=== PATIENT | male | born 1950 | race Two or more races ===

== ENCOUNTER → 2020-08-02 11:10 | Outpatient (BNVA) | payer MEDICARE, SELFPAY | PROVIDERS: PCP Internal Medicine; Visit Provider Urology | CPT/HCPCS: Q3014 ==

== ENCOUNTER → 2021-02-05 09:45 | Outpatient (BNVA) | payer MEDICARE, SELFPAY | PROVIDERS: PCP Internal Medicine; Visit Provider Urology | DX: N52.9 Male erectile dysfunction, unspecified (principal); C61 Malignant neoplasm of prostate | CPT/HCPCS: Q3014 ==

== ENCOUNTER → 2021-08-02 11:10 | Outpatient (BNVA) | payer OTHER, SELFPAY | PROVIDERS: PCP Internal Medicine; Visit Provider Urology | DX: Z13.89 Encounter for screening for other disorder (principal) ==

== ENCOUNTER 2023-09-02 13:41 | Outpatient (AMB) | payer MEDICARE, SELFPAY ==
--- NOTE | 2023-09-02 13:46 | A.OFFVIS_ITS ---
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 Accompanied by: Self / Same As Patient Allergies meperidine [Demerol] Allergy (Unknown, Verified 09/02/23 14:00) Unknown Medication List - Last Reconciled 09/02/23 by Ten Valente MD alcohol swabs (DropSafe Alcohol Prep Pads) pad topical allopurinol 300 mg PO DAILY amlodipine 5 mg PO DAILY amlodipine 10 mg PO DAILY atorvastatin 40 mg PO DAILY blood sugar diagnostic (Accu-Chek Jenna Plus test strips) As directed carvedilol 12.5 mg PO BID empagliflozin (Jardiance) mg PO glimepiride 4 mg PO DAILY lancets As directed metformin 500 mg PO BID sildenafil 100 mg PO DAILY PRN 30 days triamcinolone acetonide 0.5% 1 appl topical BID HPI HPI Comments History of Present Illness Details Ajay is a very pleasant male. He is a patient of Dr Noonan. He is seen for the following urologic conditions - prostate cancer with delayed failure a nd salvage radiation - erectile dysfunction - phimosis No recent PSA Has not been seen since January 2022 Here to reestablish care Has phimosis - has been on Jardiance for diabetes control and this may be causing the issue Recommend trial of topical therapy Repeat PSA Prostate cancer: Diagnosed April 2007, Luisa 3 + 3 initial therapy radical prostatectomy, EXBRT 2016 Prostate cancer was diagnosed 04/2007. PSA 5.9. The [place] grade is 3+3. TNM Classification of Malignant Tumours (TNM) pT1c- N0. The D'Winsome (NCCN) risk category is Low Risk (PSA< 10, Gl < 7, T1c). Initial therapy included Primary treatment, radical prostatectomy 06/25, VIU 05/28 Additional treatment - rising PSA 04/02 , External Beam Radiation, [facility] 6700Gy, 37 fractions Recent labs included a PSA (prostate-specific antigen) 10/30 0.2, 07/31 0.2, 10/31 0.4, 01/31 0.4 12/01 < 0.1, 06/04 < 0.1, 12/02 < 0.1, 07/06 < 0.1, 12/03 < 0.1, 07/07 < 0.1 - 08/05 <0.1, 02/05 <0.1, 08/06 <0.1, 02/06 <0.1, 08/07 <0.1 Associated conditions erectile dysfunction Yes Therapeutic plan: Continue with surveillance - every 6 months since failure to control Erectile dysfunction Secondary to treatment for prostate cancer Good response to sildenafil 100 mg 2020 [facility] Medical History (Updated 09/02/23 @ 14:25 by Ten Valente MD) Diabetes mellitus Arthritis HTN (hypertension) Urgency-frequency syndrome Erectile dysfunction Urethral stricture Prostate cancer Erectile dysfunction Surgical History History of prostate surgery Review of Systems Const Denies chills and Denies fever(s) Card Reports no additional complaints and Denies syncope Resp Denies cough GI Denies abdominal pain and Denies heartburn Reports as per HPI and Denies change in libido Neuro Denies syncope Psych Denies change in libido Endo Denies change in libido Physical Exam Const General: cooperative, healthy appearing, comfortable and no acute distress Orientation/consciousness: patient oriented x3 HEENT Face and sinus: Yes normal facial exam Mouth: moist mucous membranes Neck Neck: Yes normal visual inspection, Yes full ROM and Yes trachea midline Chest Chest palpation & inspection: normal inspection of the chest Resp Effort & Inspection: normal respiratory effort, able to speak in complete sentences and no respiratory distress GI Inspection: Yes normal to inspection Back/Spine/Pelvis Cervical Spine: normal cervical lordosis Thoracic/Lumbar Spine: thoracic and lumbar spine normal to inspection Skin General skin exam: no rashes or lesions noted Neuro General: patient oriented x3, gait normal, tone normal and moves all extremities Extrem General: Yes normal to inspection and Yes capillary refill normal Assessment & Plan Assessment & Plan (1) Prostate cancer: Comment: 2006 Luisa 3 + 3 initial treatment prostatectomy, boost radiation 2016 for rising PSA Code(s): C61 - Malignant neoplasm of prostate (2) Erectile dysfunction associated with type 2 diabetes mellitus: Code(s): E11.69 - Type 2 diabetes mellitus with other specified complication; N52.1 - Erectile dysfunction due to diseases classified elsewhere (3) Phimosis: Code(s): N47.1 - Phimosis Plan PSA now Prescription sent 1 month follow-up assessment circumcision Orders: Orders Prostate Specific Antigen 09/02/23 C61 - Malignant neoplasm of prostate Medications: New clotrimazole-betamethasone 1-0.05 % Apply thin coat 2 times per day 1 appl topical BID 45 grams 0RF 4 weeks N47.1 - Phimosis, N48.1 - Balanitis Patient Instructions: Imaging studies, laboratory and physical exam results were discussed and reviewed in detail. No major barriers to patient understanding were identified. An opportunity to ask questions regarding the treatment plan was provided. All questions were answered. The patient expressed understanding and agreement with the above treatment plan. The patient is aware they should contact our office by phone for worsening of their current condition or the appearance of new urologic symptoms. Compliance is encouraged with any medications and followup testing that is ordered. It is a privilege to participate in the urologic care of your patient. If you have any questions or concerns regarding treatment for the above conditions, or other urologic issues, please do not hesitate to contact me. The office telephone contact is [phone]. This note is constructed using voice recognition software. While every effort has been made to ensure accuracy apprentice instrument technician errors may have been included. Yours sincerely, Dr Ten Valente MD, [facility] - Urology Providers of Expert, Compassionate Care for the Genitourinary System Coding Level of Care Code Est Pt Level 4 (97647) Diagnoses Prostate cancer C61 Erectile dysfunction associated with type 2 diabetes mellitus E11.69; N52.1 Phimosis N47.1
== END 2023-09-02 14:31 | disposition home or self-care (01) ==
PROVIDERS: PCP Internal Medicine; Visit Provider Urology
DX: C61 Malignant neoplasm of prostate (principal); E11.69 Type 2 diabetes mellitus with other specified complication; N52.1 Erectile dysfunction due to diseases classified elsewhere; N47.1 Phimosis
CPT/HCPCS: 99214

== ENCOUNTER → 2023-09-02 13:41 | Outpatient (BNVA) | payer MEDICARE, SELFPAY | PROVIDERS: PCP Internal Medicine; Visit Provider Urology | DX: C61 Malignant neoplasm of prostate (principal); E11.69 Type 2 diabetes mellitus with other specified complication; N52.1 Erectile dysfunction due to diseases classified elsewhere; N47.1 Phimosis | CPT/HCPCS: 99212 ==

== ENCOUNTER 2023-11-06 10:10 | Outpatient (AMB) | payer MEDICARE, SELFPAY ==
--- NOTE | 2023-11-06 10:10 | MHC.OFFVIS ---
Intake Visit Reasons: PSA Follow up(set) Intake Note: Patient presents to the office as a telehealth appt for psa follow up Urology meds: sildenafil Blood thinners:none Claims Support Specialist Required: No Accompanied by: Self / Same As Patient Allergies meperidine [Demerol] Allergy (Unknown, Verified 11/06/23 10:11) Unknown HPI Comments Details: Ajay is a very pleasant male. He is a patient of Dr Noonan. He is seen for the following urologic conditions - prostate cancer with delayed failure and salvage radiation - erectile dysfunction - phimosis Telemedicine Evaluation 15 min Consultation Doximity Nathanael Video PSA nondetectable Phimosis improved with topical therapy and came off Jardiance Continue intermittent surveillance Prostate cancer: Diagnosed April 2007, Luisa 3 + 3 initial therapy radical prostatectomy, EXBRT 2016 Prostate cancer was diagnosed 04/2007. PSA 5.9. The Luisa grade is 3+3. TNM Classification of Malignant Tumours (TNM) pT1c- N0. The D'Winsome (NCCN) risk category is Low Risk (PSA< 10, Gl < 7, T1c). Initial therapy included Primary treatment, radical prostatectomy 06/25, VIU 05/28 Additional treatment - rising PSA 04/02 , External Beam Radiation, [facility] 6700Gy, 37 fractions Recent labs included a PSA (prostate-specific antigen) 10/30 0.2, 07/31 0.2, 10/31 0.4, 01/31 0.4 12/01 < 0.1, 06/04 < 0.1, 12/02 < 0.1, 07/06 < 0.1, 12/03 < 0.1, 07/07 < 0.1 - 08/05 <0.1, 02/05 <0.1, 08/06 <0.1, 02/06 <0.1, 08/07 <0.1 Associated conditions erectile dysfunction Yes Therapeutic plan: Continue with surveillance - every 6 months since failure to control Erectile dysfunction Secondary to treatment for prostate cancer Good response to sildenafil 100 mg 2020 [facility] Medical History (Updated 09/02/23 @ 14:25 by Ten Valente MD) Diabetes mellitus Arthritis HTN (hypertension) Urgency-frequency syndrome Erectile dysfunction Urethral stricture Prostate cancer Erectile dysfunction Surgical History History of prostate surgery Review of Systems Const All systems reviewed & are unremarkable except as noted in HPI and below Reports no additional complaints Resp Reports no additional complaints GI Reports no additional complaints Reports as per HPI Musc Reports no additional complaints Physical Exam Telemedicine evaluation Appropriate responses Regular breathing rate and rhythm HEENT Head: Yes normal to inspection Ears: hearing grossly normal bilaterally Eyes General: appearance normal, both eyes and all related structures Neck Neck: Yes normal visual inspection Chest Chest palpation & inspection: normal inspection of the chest Resp Effort & Inspection: normal respiratory effort and able to speak in complete sentences Telehealth Telehealth Location of provider rendering services: practice address Location of patient: address on file Patient Identification confirmed using: Name, : Yes Telehealth method: voice only Patient verbally consented to treatment: Yes Patient verbally consented to billing insurance company: Yes Patient informed of any privacy concerns related to visit: Yes Assessment & Plan Assessment & Plan (1) Phimosis: Code(s): N47.1 - Phimosis Category: Medical (2) Erectile dysfunction associated with type 2 diabetes mellitus: Code(s): E11.69 - Type 2 diabetes mellitus with other specified complication; N52.1 - Erectile dysfunction due to diseases classified elsewhere Category: Medical (3) Prostate cancer: Comment: 2006 Luisa 3 + 3 initial treatment prostatectomy, boost radiation 2016 for rising PSA Code(s): C61 - Malignant neoplasm of prostate Category: Medical Plan 1 year follow-up PSA Patient Instructions: Imaging studies, laboratory and physical exam results were discussed and reviewed in detail. No major barriers to patient understanding were identified. An opportunity to ask questions regarding the treatment plan was provided. All questions were answered. The patient expressed understanding and agreement with the above treatment plan. The patient is aware they should contact our office by phone for worsening of their current condition or the appearance of new urologic symptoms. Compliance is encouraged with any medications and followup testing that is ordered. It is a privilege to participate in the urologic care of your patient. If you have any questions or concerns regarding treatment for the above conditions, or other urologic issues, please do not hesitate to contact me. The office telephone contact is [phone]. This note is constructed using voice recognition software. While every effort has been made to ensure accuracy forest ranger technician errors may have been included. Yours sincerely, Dr Ten Valente MD, [facility] - Urology Providers of Expert, Compassionate Care for the Genitourinary System Coding Level of Care Code Tele Est Pt Level 3 (03212) Diagnoses Phimosis N47.1 Erectile dysfunction associated with type 2 diabetes mellitus E11.69; N52.1 Prostate cancer C61
== END 2023-11-06 12:00 ==
LOC: HO.HUSH 10:10
PROVIDERS: PCP Internal Medicine; Visit Provider Urology
DX: C61 Malignant neoplasm of prostate (principal); N47.1 Phimosis; E11.69 Type 2 diabetes mellitus with other specified complication; N52.1 Erectile dysfunction due to diseases classified elsewhere
CPT/HCPCS: 99442

== ENCOUNTER → 2023-11-06 10:10 | Outpatient (BNVA) | payer MEDICARE, SELFPAY | PROVIDERS: PCP Internal Medicine; Visit Provider Urology ==

== ENCOUNTER 2024-08-05 11:02 | Outpatient (REF) | payer MEDICARE, SELFPAY ==
[2024-08-05 12:30] LABS: Prostate Specific Antigen 0.13 ng/mL (<0.05-4.0)
== END 2024-08-05 11:03 | disposition home or self-care (01) ==
LOC: HO.LAB 11:02
PROVIDERS: PCP Internal Medicine; Visit Provider Urology
DX: C61 Malignant neoplasm of prostate (principal); Z12.5 Encounter for screening for malignant neoplasm of prostate
CPT/HCPCS: 36415; 84153

== ENCOUNTER 2024-08-12 08:56 | Outpatient (AMB) | payer MEDICARE, SELFPAY ==
--- NOTE | 2024-08-12 08:57 | A.OFFVIS_ITS ---
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 He is a patient of Dr Noonan. He is seen for the following urologic conditions - prostate cancer with delayed failure and salvage radiation - erectile dysfunction - phimosis Urinary Symptoms Review - Difficulty with directed urination; urine streams erratically. - Pain when retracting the foreskin. - Presence of minor cuts on the foreskin. PSA slight rise 0.13 Phimosis repeat dose of topical therapy. May benefit from circumcision Continue intermittent surveillance Prostate cancer: Diagnosed April 2007, Luisa 3 + 3 initial therapy radical prostatectomy, EXBRT 2016 Prostate cancer was diagnosed 04/2007. PSA 5.9. The [place] grade is 3+3. TNM Classification of Malignant Tumours (TNM) pT1c- N0. The D'Winsome (NCCN) risk category is Low Risk (PSA< 10, Gl < 7, T1c). Initial therapy included Primary treatment, radical prostatectomy 06/25, VIU 05/28 Additional treatment - rising PSA 04/02 , External Beam Radiation, [facility] 6700Gy, 37 fractions Recent labs included a PSA (prostate-specific antigen) 10/30 0.2, 07/31 0.2, 10/31 0.4, 01/31 0.4 12/01 < 0.1, 06/04 < 0.1, 12/02 < 0.1, 07/06 < 0.1, 12/03 < 0.1, 07/07 < 0.1 - 08/05 <0.1, 02/05 <0.1, 08/06 <0.1, 02/06 <0.1, 08/07 <0.1, 08/09 0.13 Associated conditions erectile dysfunction Yes Therapeutic plan: Continue with surveillance - every 6 months since failure to control Erectile dysfunction Secondary to treatment for prostate cancer Good response to sildenafil 100 mg 2020 [facility] Medical History Diabetes mellitus Arthritis HTN (hypertension) Urgency-frequency syndrome Erectile dysfunction Urethral stricture Prostate cancer Erectile dysfunction Surgical History History of prostate surgery Review of Systems Const Denies chills and Denies fever(s) Card Reports no additional complaints and Denies syncope Resp Denies cough GI Denies abdominal pain and Denies heartburn Reports as per HPI and Denies change in libido Neuro Denies syncope Psych Denies change in libido Endo Denies change in libido Physical Exam Const General: cooperative, healthy appearing, comfortable and no acute distress Orientation/consciousness: patient oriented x3 HEENT Face and sinus: Yes normal facial exam Mouth: moist mucous membranes Neck Neck: Yes normal visual inspection, Yes full ROM and Yes trachea midline Chest Chest palpation & inspection: normal inspection of the chest Resp Effort & Inspection: normal respiratory effort, able to speak in complete sentences and no respiratory distress GI Inspection: Yes normal to inspection Back/Spine/Pelvis Cervical Spine: normal cervical lordosis Thoracic/Lumbar Spine: thoracic and lumbar spine normal to inspection Skin General skin exam: no rashes or lesions noted Neuro General: patient oriented x3, gait normal, tone normal and moves all extremities Extrem General: Yes normal to inspection and Yes capillary refill normal Assessment & Plan Assessment & Plan (1) Prostate cancer: Comment: 2006 [place] 3 + 3 initial treatment prostatectomy, boost radiation 2016 for rising PSA Code(s): C61 - Malignant neoplasm of prostate Category: Medical (2) Erectile dysfunction associated with type 2 diabetes mellitus: Code(s): E11.69 - Type 2 diabetes mellitus with other specified complication; N52.1 - Erectile dysfunction due to diseases classified elsewhere Category: Medical Plan Plan 1. 2 for recurrence detection. Initiate topical treatment for balanitis, with instructions for application over two months. Discuss potential circumcision to resolve balanitis if topical therapy is ineffective. Circumcision recovery forecasted for 3-4 weeks.: Discussion Notes During the discussion, we evaluated the PSA trends post-radical prostatectomy and salvage radiation, with the current level at 0.13. I outlined the plan to reassess PSA in four months, considering a PET CT thereafter if levels increase to 0.2, given sensitivity limits at lower levels. Urinary issues were attributed to balanitis, and treatment options, including topical medication and potential circumcision, were reviewed. The patient was informed about the advantages of topical therapy first, the possible resolution through circumcision, and recovery details. We agreed on a summer procedure should circumcision be necessary. The plan includes medications, follow-up timelines, and symptoms of concern. Patient Instructions - Apply the prescribed cream twice daily for one month, with a refill for continued use for another month. - Return in four months for follow-up and PSA check. - Advise immediate contact if symptoms worsen or if new symptoms emerge. - Consider summer scheduling for circumcision if symptoms do not resolve with topical treatment. Patient Instructions: This note is constructed using voice recognition software. While every effort has been made to ensure accuracy diamond sizer and sorter errors may have been included. Imaging studies, laboratory and physical exam results were discussed and reviewed in detail. No major barriers to patient understanding were identified. An opportunity to ask questions regarding the treatment plan was provided. All questions were answered. The patient expressed understanding and agreement with the above treatment plan. The patient is aware they should contact our office by phone for worsening of their current condition or the appearance of new urologic symptoms. Compliance is encouraged with any medications and followup testing that is ordered. It is a privilege to participate in the urologic care of your patient. If you have any questions or concerns regarding treatment for the above conditions, or other urologic issues, please do not hesitate to contact me. The office telephone contact is [phone]. Sincerely, Dr Ten Valente MD, [facility] - Urology Compassionate Specialist Care for the Genitourinary System Coding Level of Care Code Est Pt Level 4 (67084) Complex EM visit Add On G2211 Diagnoses Prostate cancer C61 Erectile dysfunction associated with type 2 diabetes mellitus E11.69; N52.1
== END 2024-08-12 09:37 | disposition home or self-care (01) ==
LOC: HO.HUSH 08:56
PROVIDERS: PCP Internal Medicine; Visit Provider Urology
DX: C61 Malignant neoplasm of prostate (principal); E11.69 Type 2 diabetes mellitus with other specified complication; N52.1 Erectile dysfunction due to diseases classified elsewhere
CPT/HCPCS: 99214; G2211

== ENCOUNTER → 2024-08-12 08:56 | Outpatient (BNVA) | payer MEDICARE, SELFPAY | PROVIDERS: PCP Internal Medicine; Visit Provider Urology | DX: C61 Malignant neoplasm of prostate (principal); E11.69 Type 2 diabetes mellitus with other specified complication; N52.1 Erectile dysfunction due to diseases classified elsewhere | CPT/HCPCS: 99212 ==

== ENCOUNTER 2024-11-28 09:05 | Outpatient (REF) | payer MEDICARE, SELFPAY ==
--- OUTSIDE RECORDS SUMMARY | 2024-11-28 09:26 | XMS_ITS | Clinical Summary ---
Author Organization [facility] Address [address] [place] [address] Phone Care Team Providers Care [employer] Name Role Phone Mikey Noonan MD Primary Care Provider [phone] Allergies No known active allergies Medications amLODIPine (NORVASC) 10 mg tablet Take 1 tablet (10 mg total) by mouth 1 (one) time each day. Active atorvastatin (LIPITOR) 40 mg tablet Take 1 tablet (40 mg total) by mouth at bedtime. 06/02/2024 Active metFORMIN (GLUCOPHAGE) 1,000 mg tablet Take 1 tablet (1,000 mg total) by mouth 2 (two) times a day with meals. 06/01/2024 Active empagliflozin (Jardiance) 25 mg tablet Take 1 tablet (25 mg total) by mouth 1 (one) time each day in the morning. Active Active Problems Problem Noted Date Diagnosed Date Sinus bradycardia 06/25/2024 Resolved Problems Problem Noted Date Diagnosed Date Resolved Date Acute encephalopathy 06/23/2024 025 Encounters Date Type Department Care Team Description 09/27/2024 10:00 AM EDT Ancillary Procedure [facility] Cardiology [facility] [address] [facility] [address] [place] [id number] Sinus bradycardia 09/20/2024 Telephone [facility] Cardiology [facility] [address] [facility] [address] [place] [id number] Kevon Dumont MD [id number] (ok to book); LOOP Enrollment (Enrolling patient for 30 day LOOP) from Last 3 Months Medical History Medical History Date Comments Diabetes mellitus (CMS/HCC V24, CMS/HCC V28) DX:Diabetes mellitus (HCC) Social History Tobacco Use Types Packs/Day Years Used Date Smoking Tobacco: Never Smokeless Tobacco: Never Alcohol Use Standard Drinks/Week Comments Yes 5 (1 standard drink = 0.6 oz pur e alcohol) Sex and Gender Information Value Date Recorded Sex Assigned at Male 06/23/2024 6:33 AM EST Legal Sex Male 4:32 AM EST Gender Identity Male 06/23/2024 6:33 AM EST Sexual Orientation Not on file Obstetrics History Last Filed Vital Signs Vital Sign Reading Time Taken Comments Blood Pressure 131/66 06/25/2024 12:25 PM EST Pulse 50 06/25/2024 12:25 PM EST Temperature 36.7 C (98 F) 06/25/2024 12:25 PM EST Respiratory Rate 19 06/25/2024 12:25 PM EST Oxygen Saturation 96% 06/25/2024 12:25 PM EST Inhaled Oxygen Concentration - - Weight 77.7 kg (171 lb 6.4 oz) 06/23/2024 5:08 A M EST Height 167.6 cm (5' 6 ) 06/23/2024 5:08 AM EST Body Mass Index 27.66 06/23/2024 5:08 AM EST Plan of Treatment Health Maintenance Due Date Last Done Comments Diabetes: Annual Foot Exam 1961 Diabetes: Annual Retina Eye Exam 1961 DTaP,Tdap,and Td Vaccines (1 - Tdap) 1970 Zoster Vaccines (1 of 2) 1970 RSV Immunization Adult Patients (1 - Risk 60-74 years 1-dose series) 2011 Colorectal Cancer Screening: Colonoscopy 04/20/2022 Depression Screening 04/20/2022 Hepatitis C Screening 04/20/2022 Social Influencers of Health Screening 04/20/2022 COVID-19 Vaccine ( season) 2024 03/21/2023, 04/09/2022, 04/12/2021, Additional history exists Diabetes: Annual Urine Albumin-Creatinine Ratio (uACR) 09/29/2024 Diabetes: Blood Sugar Control Test (HGBA1C) 12/21/2024 06/23/2024 Influenza Vaccine (#1) 2025 3, 04/09/2022, 03/18/2019, Additional history exists Diabetes: Annual GFR (Glomerular Filtration Rate) 06/25/2025 06/25/2024, 06/24/2024, 06/23/2024 Falls Risk Assessment 06/25/2025 06/25/2024 Hypertension/CHF/CAD Annual BMP Blood Test 06/25/2025 06/25/2024, 06/24/2024, 06/23/2024 Cholesterol Screening (Lipid Panel) 06/23/2029 06/23/2024 Pneumococcal Vaccine: 50+ Years Completed 09/07/2021, 08/18/2017, 02/03/2016 HIB Vaccines Aged Out No longer eligi ble based on patient's age to complete this topic HPV Vaccines Aged Out No longer eligi ble based on patient's age to complete this topic Hepatitis A Vaccines Aged Out No long er eligible based on patient's age to complete this topic Hepatitis B Vaccines Aged Out No long er eligible based on patient's age to complete this topic IPV Vaccines Aged Out No longer eligi ble based on patient's age to complete this topic MMR Vaccines Aged Out No longer eligi ble based on patient's age to complete this topic Meningococcal ACWY Vaccine Aged Out N o longer eligible based on patient's age to complete this topic Meningococcal B Vaccine Aged Out No l onger eligible based on patient's age to complete this topic RSV Immunization Patients Under 20 months Aged Out No longer eligible based on patient's age to complete this topic Varicella Vaccines Aged Out No longer eligible based on patient's age to complete this topic Procedures Procedure Name Priority Date/Time Associated Diagnosis Comments CARDIAC EVENT MONITOR W/ CONNECTION Routine 09/28/2024 2:49 PM EDT Sinus bradycardia BASIC METABOLIC PANEL Routine 06/25/2024 6:05 AM EST HEMOGLOBIN A1C Add-On 06/23/2024 5:20 AM EST LIPID PANEL WITH REFLEX TO DIRECT LDL Add-On 06/23/2024 5:20 AM EST from Last 3 Months or Most Recently Relevant to Health Maintenance Results * CARDIAC EVENT MONITOR W/ CONNECTION (09/28/2024 2:49 PM EDT) Anatomical Region Laterality Modality Cardiac Diagnost ic Impressions 10/28/2024 8:49 AM EDT The patient was predominantly in sinus rhythm with occasional PACs and PVCs. 39 symptomatic events were recorded and the majority did not correspond to any abnormal heart rhythm. No atrial or ventricular arrhythmias and no bradycardia or pauses noted. Narrative 10/28/2024 8:49 AM EDT [facility] DIAGNOSTIC [facility]ING DEPARTMENT [address] [place] [address] TEL: FAX: TYPE OF TEST: 30 day Looping monitor. DATES OF MONITORIN09/27/2024- 10/27/2024 REQUESTING PHYSICIAN: Jonatan Martinez NP PRIMARY CARE PROVIDER: Mikey Noonan MD INDICATION: Sinus bradycardia PRELIMINARY FINDINGS FROM FIRST CALL MEDICAL: 1. The predominant rhythm was sinus. 2. There were 39 patient triggered symptomatic events. Jonatan Martinez NP [facility] CARDIAC SERVICES PROCEDURE S Final Result * (ABNORMAL) Basic metabolic panel (06/25/2024 6:05 AM EST) Sodium 143 133 - 145 mmol/L LAB CHEMISTRY METHOD 06/25/2024 7:53 AM [facility] Potassium 4.3 3.5 - 5.5 mmol/L LAB CHEMISTRY METHOD 06/25/2024 7:53 AM [facility] Chloride 113(H) 96 - 110 mmol/L LAB CHEMISTRY METHOD 06/25/2024 7:53 AM [facility] CO2 25 21 - 32 mmol/L LAB CHEMISTRY METHOD 06/25/2024 7:53 AM [facility] Anion Gap 5 3 - 11 LAB CHEMISTRY METHOD 06/25/2024 7:53 AM [facility] Glucose 117(H) 70 - 100 mg/dL LAB CHEMISTRY METHOD 06/25/2024 7:53 AM [facility] BUN 19 5 - 25 mg/dL LAB CHEMISTRY METHOD 06/25/2024 7:53 AM [facility] Creatinine 1.04 0.70 - 1.30 mg/dL LAB CHEMISTRY METHOD 06/25/2024 7:53 AM [facility] eGFR 76 >=60 mL/min/1. 73m2 LAB CHEMISTRY METHOD 06/25/2024 7:53 AM [facility] Comment:Calculation based on the Chronic Kidney Disease Epidemiology Collaboration (CKD-EPI) equation refit without adjustment for race. BUN/Creatinine Ratio 18.3 LAB CHEMISTRY METHOD 06/25/2024 7:53 AM [facility] Calcium 8.3(L) 8.5 - 10.5 mg/dL LAB CHEMISTRY METHOD 06/25/2024 7:53 AM [facility] Blood Venous blood specimen / Unknown Venipuncture / Unknown 06/25/2024 6:05 AM EST 06/25/2024 7:03 AM EST Greta Pack MD LAB BLOOD ORDERABLES Final R esult [facility] [address] [place] [address], * Lipid panel with reflex to direct LDL (06/23/2024 5:20 AM EST) Cholesterol 145 0 - 200 mg/dL LAB CHEMISTRY METHOD 06/23/2024 9:08 AM [facility] Triglycerides 58 0 - 150 mg/dL LAB CHEMISTRY METHOD 06/23/2024 9:08 AM [facility] HDL 72 >=40 mg/dL LAB CHEMISTRY METHOD 06/23/2024 9:08 AM [facility] LDL Calculated 61 0 - 100 mg/dL LAB CHEMISTRY METHOD 06/23/2024 9:08 AM EST [facility] VLDL Cholesterol Sheldon 11.6 mg/dL LAB CHEMISTRY METHOD 06/23/2024 9:08 AM [facility] Non HDL Chol. (LDL+VLDL) 73 <145 mg/dL LAB CHEMISTRY METHOD 06/23/2024 9:08 AM [facility] Chol/HDL Ratio 2.0 0.0 - 4.4 LAB CHEMISTRY METHOD 06/23/2024 9:08 AM EST [facility] Blood Venous blood specimen / Unknown Venipuncture / Unknown 06/23/2024 5:20 AM EST 06/23/2024 5:44 AM EST us Dedrick Mullen MD LAB BLOOD ORDERABLES Final Re sult Performing Organization Address City/[facility]/ZIP Co de Phone Number [facility] [address] [place] [address], [place] [phone] * (ABNORMAL) Hemoglobin A1c (06/23/2024 5:20 AM EST) Hemoglobin A1C 7.8(H) <6.5 % LAB CHEMISTRY METHOD 06/23/2024 12:14 PM [facility] Mean Bld Glu Estim. 177 mg/dL LAB CHEMISTRY METHOD 06/23/2024 12:14 PM [facility] Blood Venous blood specimen / Unknown Venipuncture / Unknown 06/23/2024 5:20 AM EST 06/23/2024 5:43 AM EST us Dedrick Mullen MD LAB BLOOD ORDERABLES Final Re sult Performing Organization Address City/[facility]/ZIP Co de Phone Number [facility] [address] [place] [address], [place] [phone] from Last 3 Months or Most Recently Relevant to Health Maintenance Insurance [facility] Advance Directives * Full Code - Default (Latest Code Status on File) Date Activated Date Inactivated Comments 06/23/2024 8:41 AM 06/25/2024 5:41 PM This is order is used when code status has not been discussed with the patient, or code status is otherwise unknown/unconfirmed To update the patient's code status, place a code status order. Do not modify or discontinue any currently active code status orders. Care Teams [employer] Relationship Specialty Start Date End Date Mikey Noonan MD [address] [place] [id number] PCP - General Internal Medicine 08/02/21
--- OUTSIDE RECORDS SUMMARY | 2024-11-28 09:26 | XMS_ITS | Patient Health Record ---
Author Organization [facility] [address] Address [address] [place] [address] Care Team Providers Care Program Management Manager Name Role Phone HELENE MAROLW Unavailable [phone] LIBBYPRETTY HERNANDEZ Unavailable [phone] Allergies No Known Allergies Results Component Value Reference Range Notes BORRELIA BURGDORFERI ANTIBOD Y Reviewed date:06/30/2024 08:58:44 AM Interpretation: Performing Lab: Notes/Report: Lyme Ab Negative Negative No laboratory evidence of infection with B. burgdorferi (Lyme disease). Negative results may occur in patients recently infected (<=14 days) with B. burgdorferi. If recent infection is suspected, repeat testing on a new sample collected in 7-14 days is recommended. METHYLMALONIC ACID, SERUM Reviewed date:06/30/2024 08:59:00 AM Interpretation: Performing Lab: Notes/Report: Methylmalonic Acid 0.30 <0.40 umol/L If applicable, any drug confirmation testing reported here was developed and the performance characteristics determined by [facility]. This confirmation testing has not been cleared or approved by the FDA. The laboratory is regulated under CLIA as qualified to perform high-complexity testing. This test is used for patient testing purposes. It should not be regarded as investigational or for research. Test performed at [facility], [address], [place] [address] Flory Hammer MD, PhD - Director Of Vocational Training Comp. Metabolic Panel [id number] Reviewed date:02/26/2024 11:29:33 AM Interpretation: Performing Lab:[facility] [place], [address] [facility], [place], Phone - [phone], Director - Iliana Notes/Report: Glucose 131 70-99 mg/dL BUN 14 8-27 mg/dL Creatinine 1.02 0.76-1.27 mg/dL eGFR 78 >59 mL/min/1.73 BUN/Creatinine Ratio 14 10-24 Sodium 139 134-144 mmol/L Potassium 4.7 3.5-5.2 mmol/L Chloride 106 96-106 mmol/L Carbon Dioxide, Total 17 20-29 mmol/L Calcium 9.8 8.6-10.2 mg/dL Protein, Total 7.2 6.0-8.5 g/dL Albumin 4.5 3.8-4.8 g/dL Globulin, Total 2.7 1.5-4.5 g/dL Bilirubin, Total 0.6 0.0-1.2 mg/dL Alkaline Phosphatase 94 44-121 IU/L AST (SGOT) 15 0-40 IU/L ALT (SGPT) 11 0-44 IU/L Lipid Panel-[id number] Reviewed date:02/26/2024 11:29:33 AM Interpretation: Performing Lab:[facility], [address] [facility], Phone - [phone], Director - Iliana Notes/Report: Cholesterol, Total 131 100-199 mg/dL Triglycerides 65 0-149 mg/dL HDL Cholesterol 62 >39 mg/dL VLDL Cholesterol Sheldon 14 5-40 mg/dL LDL Chol Calc (NIH) 55 0-99 mg/dL Vitamin D, 99-[id number] Reviewed date:02/26/2024 11:29:33 AM Interpretation: Performing Lab:[facility], [address] [facility], Phone - [phone], Director - Iliana Notes/Report: Vitamin D, 25-Hydroxy 22.0 30.0-100.0 ng/mL Vitamin D deficiency has been defined by the [place] of Medicine and an Endocrine Society practice guideline as a level of serum 25-OH vitamin D less than 20 ng/mL (1,2). The Endocrine Society went on to further define vitamin D insufficiency as a level between 21 and 29 ng/mL (2). 1. IOM ([place] of Medicine). 2010. Dietary reference intakes for calcium and D. [place]: The National Academies Press. 2. Vale RYAN, Tracy MALLOY, Isaiah TOLEDO, et al. Evaluation, treatment, and prevention of vitamin D deficiency: an Endocrine Society clinical practice guideline. JCEM. 2010; 96(7):1911-30. CBC With Differential/Platel et-[id number] Reviewed date:02/26/2024 11:29:33 AM Interpretation: Performing Lab:[facility] [place], [address] [facility], Phone - [phone], Director - MDKristiney Notes/Report: WBC 6.5 3.4-10.8 x10E3/uL RBC 4.89 4.14-5.80 x10E6/uL Hemoglobin 14.9 13.0-17.7 g/dL Hematocrit 44.0 37.5-51.0 % MCV 90 79-97 fL MCH 30.5 26.6-33.0 pg MCHC 33.9 31.5-35.7 g/dL RDW 13.6 11.6-15.4 % Platelets 232 150-450 x10E3/uL Neutrophils 74 Not Estab. % Lymphs 14 Not Estab. % Monocytes 10 Not Estab. % Eos 1 Not Estab. % Basos 1 Not Estab. % Neutrophils (Absolute) 4.8 1.4-7.0 x10E3/uL Lymphs (Absolute) 0.9 0.7-3.1 x10E3/uL Monocytes(Absolute) 0.6 0.1-0.9 x10E3/uL Eos (Absolute) 0.1 0.0-0.4 x10E3/uL Baso (Absolute) 0.1 0.0-0.2 x10E3/uL Immature Granulocytes 0 Not Estab. % Immature Grans (Abs) 0.0 0.0-0.1 x10E3/uL [id number] Reviewed date:02/26/2024 11:29:33 AM Interpretation: Performing Lab:[facility] [place], [address] [facility], [place], Phone - [phone], Director - Yanniy Notes/Report: TSH 1.720 0.450-4.500 uIU/mL Urinalysis, Complete-[id number] Reviewed date:02/26/2024 11:29:33 AM Interpretation: Performing Lab:[facility] [place], [address] [facility], [place], Phone - [phone], Director - Jodry Notes/Report: Specific Cr[place] 1.025 1.005-1.030 pH 6.0 5.0-7.5 Urine-Color Yellow Yellow Appearance Clear Clear WBC Esterase Negative Negative Protein Trace Negative/Trace Glucose 3+ Negative Ketones Negative Negative Occult Blood Negative Negative Bilirubin Negative Negative Urobilinogen,Semi-Qn 0.2 0.2-1.0 mg/dL Nitrite, Urine Negative Negative Microscopic Examination Micr oscopic follows if indicated. Microscopic Examination See below: Micr oscopic was indicated and was performed. WBC None seen 0 - 5 /hpf RBC 0-2 0 - 2 /hpf Epithelial Cells (non renal) None seen 0 - 10 /hpf Casts None seen None seen /lpf Bacteria None seen None seen/Few Hemoglobin [id number] Reviewed date:02/26/2024 11:29:33 AM Interpretation: Performing Lab:[facility], [address] [place] [address], Phone - [phone], Director - Iliana Notes/Report: Hemoglobin A1c 7.2 4.8-5.6 % . Prediabetes: 5.7 - 6.4 Diabetes: >6.4 Glycemic control for adults with diabetes: <7.0 Reason For Referral Reason [facility] Diagnosis 1 Asymptomatic bradyca rdia (R00.1) Diagnosis 2 Block, bundle branch , left (I44.7) [facility] [address] Referring Provider First Name PRETTY Referring Provider Last Name GINGER Referring Provider Speciality Internal M edicine Referred Provider Specialty Cardiology General Notes Ilene Kennedy 02/2025 09:36:27 AM > Referral faxed to [phone] and pt given phone [phone]. Referral Priority Routine Medications Medication SIG (Take, Route, Frequency, Duration) Notes Start Date End Date Status metFORMIN HCl 1000 MG TAKE 1 TABLET BY M OUTH TWICE DAILY; Duration: 30 Active Jardiance 25 MG TAKE 1 TABLET BY JAVIER TH EVERY DAY 30; Duration: 30 Active amLODIPine Besylate 10 MG 1 tablet Orall y Once a day; Duration: 90 days Active metFORMIN HCl 1000 MG 1 tablet with a me al Orally twice a day; Duration: 90 days Active Jardiance 25 MG 1 tablet Orally Once a day; Duration: 90 days Active Allopurinol 300 MG 1 tablet Orally Once a day; Duration: 90 days Active Carvedilol 12.5 MG TAKE 1 TABLET TWICE DAILY WITH FOOD; Duration: 90 Active Atorvastatin Calcium 40 MG 1 tablet Oral ly Once a day; Duration: 90 days Active Immunizations Vaccine Route Administration Date Status Comme nts influenza IM Intramuscular 02/02/2023 Administered Social History Tobacco Use: Social History Observation Description Date Details (start date - stop date) Never Smoker NA - NA Tobacco Use/Smoking Question Answer Notes Are you a nonsmoker Problems Problem Type SNOMED Code ICD Code Onset Dates Problem Status W/U Status Risk Notes Problem Malignant neoplasm of prostate (343007502) Malignant neoplasm of prostate (C61) Active confirmed Problem Hyperlipidemia (67923455) Hyperlipidemia, unspecified (E78.5) Active confirmed Problem Metabolic encephalopathy (57665533) Metabolic encephalopathy (G93.41) Active confirmed Problem Essential hypertension (35493258) Essential (primary) hypertension (I10) Active confirmed Problem Gout (67627832) Gout, unspecifie d (M10.9) Active confirmed Problem Adult health examination (960516519) Encounter for general adult medical examination without abnormal findings (Z00.00) Active confirmed Problem Lipid screening (881365353) Encounter for screening for lipoid disorders (Z13.220) Active confirmed Problem Colon cancer screening (505469467) Colon cancer screening (Z12.11) Active confirmed Problem Hyperlipidaemia (88109620) Hyperlipidemia, unspecified hyperlipidemia type (E78.5) Active confirmed Problem Adult health examination (756093826) Adult general medical exam (Z00.00) Active confirmed Problem Hypothyroidism (72501515) Hypothyroidism, unspecified type (E03.9) Active confirmed Problem Malignant tumor of prostate (840802656) Prostate cancer (C61) Active confirmed Problem Annual health maintenance examination (27843207) Annual physical exam (Z00.00) Active confirmed Problem Syncope and collapse (811021213) Syncope, unspecified syncope type (R55) Active confirmed Problem Vitamin D deficiency (39481556) Vitamin D deficiency (E55.9) Active confirmed Problem Diabetes mellitus screening (540297401) Diabetes mellitus screening (Z13.1) Active confirmed Problem Type II diabetes mellitus without complication (002850542) Type 2 diabetes mellitus without complication, without long-term current use of insulin (E11.9) Active confirmed Problem Hypoglycemia (086270985) Hypoglycemia (E16.2) Active confirmed Problem Avitaminosis D (17043137) Avitaminosis D (E55.9) Active confirmed Problem Endocrine/metaboli c screening (830568555) Encounter for screening for endocrine disorder (Z13.29) Active confirmed Problem Left bundle branch block (83630495) LBBB (left bundle branch block) (I44.7) Active confirmed Problem Asymptomatic bradycardia (3319719494) Asymptomatic bradycardia (R00.1) Active confirmed Problem Left bundle branch block (25970481) Block, bundle branch, left (I44.7) Active confirmed Vital Signs Heart Rate 64 /min 09/19/2024 Blood pressure diastolic 76 mm Hg 09/19/2024 Oximetry 98 % 09/19/2024 Height 65 in 09/19/2024 Blood pressure systolic 138 mm Hg 09/19/2024 Weight 168 lbs 09/19/2024 BMI 27.95 kg/m2 09/19/2024 Encounters Encounter Location Date Provider Diagnosis [facility] [address] [address] 02/25/2024 PRETTY MILES Annual physical exam Z00.00 ; Encounter for screening for depression Z13.31 ; Encounter for screening for other disorder Z13.89 ; Essential (primary) hypertension I10 ; Type 2 diabetes mellitus without complication, without long-term current use of insulin E11.9 ; Hyperlipidemia, unspecified E78.5 and Hypothyroidism, unspecified type E03.9 [facility] [address] [address] 06/27/2024 PRETTY MILES Essential (primary) hypertension I10 ; Sinus bradycardia R00.1 ; Type 2 diabetes mellitus without complication, without long-term current use of insulin E11.9 ; Hyperlipidemia, unspecified E78.5 ; Hypothyroidism, unspecified type E03.9 and LBBB (left bundle branch block) I44.7 [facility] [address] [address] 09/19/2024 PRETTY MILES Essential (primary) hypertension I10 ; Type 2 diabetes mellitus without complication, without long-term current use of insulin E11.9 ; Hyperlipidemia, unspecified E78.5 ; Hypothyroidism, unspecified type E03.9 ; Sinus bradycardia R00.1 ; LBBB (left bundle branch block) I44.7 and Colon cancer screening Z12.11 [facility] [address] [facility] [address] [place] [address] 05/30/2024 PRETTY MILES Essential (primary) hypertension I10 [facility] [address] [facility] [address] [place] [address] 06/27/2024 PRETTY MILES [facility] [address] [facility] [address] [place] [address] 09/19/2024 PRETTY MILES [facility] [address] [facility] [address] [place] [address] 09/20/2024 HELENE MARLOW [facility] [address] [place] [address] 10/31/2024 HELENE MARLOW Assessments Encounter Date Diagnosis (ICD Code) Assessment Notes Treatment Notes Treatment Clinical Notes Section Notes 02/25/2024 Encounter for screening for depression (ICD-10 - Z13.31) Acute Concerns/Problem List: 02/25/2024 MAWV Patient overall well today and offers no complaints. Chronic conditions are well-controlled and stable at this time Diabetes will continue with SGLT as well as metformin Renal function is preserved Hemoglobin A1c 02/24/24 7.2, previously 6.5 in October Hypertension is stable on current regimen as well - will order cuff for at home monitoring Hyperlipidemia continue statin Colonoscopy due in 2024 Insurance changing after May 17, inquiring about remaining with us and what insurances we do take Directed to our photographic specialist We discussed in detail the management of diabetes mellitus. Emphasis was paid on nutrition, low carbohydrate diet with good fat and protein sources, fruits and vegetables was discussed. Exercise was recommended. Incorporation of daily walking into a routine was discussed. A pedometer goal of 10,000 steps was discussed. Management of diabetes mellitus along with medications to treat the condition was discussed. Importance of diabetic foot exam, diabetic eye exam, urine microalbumin analysis annually was discussed. Side effects of diabetic medications were discussed again. Patient agrees to take medications as prescribed and comply with lifestyle modifications. Reviewed with patient the importance of medication and treatment plan compliance with BP goal of less then 140/90 per JNC 8 guidelines based on patient's age. This will ensure optimal health outcomes and prevent target organ damage. Made aware that uncontrolled hypertension may be silent and result in a stroke, heart attack, renal failure or even . Discussed the rationale for individualized medication regimen and the effects of their BP. Instructed to seek emergent care if the patient develops a headache, blurry vision, dizziness, chest pain or pressure. ASCVD is a stepwise approach for all adult patients, including those with known ASCVD This risk estimate is a standardized guideline to predict risk and recommend management strategies for those at risk of ASCVD Risk of cardiovascular event (Coronary or stroke or nonfatal [place] or stroke) In the next 10 years We discussed the role of cholesterol and atherosclerosis. Cholesterols broken down into some particles. Cholesterol very important for her body and has an important role in the synthesis of various hormones and neurotransmitters. However, today's cholesterol can have potential complications. Small density LDL particles that are oxidized or particularly dangerous. HDL cholesterol can have a protective effect. Elevated triglycerides levels are also dangerous. An elevated triglyceride and HDL ratio could be a sign of insulin resistance. Statins, fibrates, niacin, fish oil, DHEA, can be beneficial in treatment of dyslipidemia. Lifestyle modification with exercise and appropriate nutrition can decrease the risk of atherosclerosis due to dyslipidemia. Of note, some information is being carried forward from prior records for informational purposes only and is being cited so that efficiency, safety and quality of the patient's care is not compromised This note was prepared using voice recognition software and direct typing Please excuse inadvertent building maintenance technician or typing errors, or uncorrected word substitutions Although every attempt has been made by the provider to proofread this document, occasional misspellings and typographical errors may still be present Due to the previous pandemic, and the use of personal protective equipment (PPE) This may decrease voice recognition accuracy Inadvertent building maintenance technician errors may occur 02/25/2024 Annual physical exam (ICD-10 - Z00.00) Acute Concerns/Problem List: 02/25/2024 MAWV Patient overall well today and offers no complaints. Chronic conditions are well-controlled and stable at this time Diabetes will continue with SGLT as well as metformin Renal function is preserved Hemoglobin A1c 02/24/24 7.2, previously 6.5 in October Hypertension is stable on current regimen as well - will order cuff for at home monitoring Hyperlipidemia continue statin Colonoscopy due in 2024 Insurance changing after May 17, inquiring about remaining with us and what insurances we do take Directed to our photographic specialist We discussed in detail the management of diabetes mellitus. Emphasis was paid on nutrition, low carbohydrate diet with good fat and protein sources, fruits and vegetables was discussed. Exercise was recommended. Incorporation of daily walking into a routine was discussed. A pedometer goal of 10,000 steps was discussed. Management of diabetes mellitus along with medications to treat the condition was discussed. Importance of diabetic foot exam, diabetic eye exam, urine microalbumin analysis annually was discussed. Side effects of diabetic medications were discussed again. Patient agrees to take medications as prescribed and comply with lifestyle modifications. Reviewed with patient the importance of medication and treatment plan compliance with BP goal of less then 140/90 per JNC 8 guidelines based on patient's age. This will ensure optimal health outcomes and prevent target organ damage. Made aware that uncontrolled hypertension may be silent and result in a stroke, heart attack, renal failure or even . Discussed the rationale for individualized medication regimen and the effects of their BP. Instructed to seek emergent care if the patient develops a headache, blurry vision, dizziness, chest pain or pressure. ASCVD is a stepwise approach for all adult patients, including those with known ASCVD This risk estimate is a standardized guideline to predict risk and recommend management strategies for those at risk of ASCVD Risk of cardiovascular event (Coronary or stroke or nonfatal [place] or stroke) In the next 10 years We discussed the role of cholesterol and atherosclerosis. Cholesterols broken down into some particles. Cholesterol very important for her body and has an important role in the synthesis of various hormones and neurotransmitters. However, today's cholesterol can have potential complications. Small density LDL particles that are oxidized or particularly dangerous. HDL cholesterol can have a protective effect. Elevated triglycerides levels are also dangerous. An elevated triglyceride and HDL ratio could be a sign of insulin resistance. Statins, fibrates, niacin, fish oil, DHEA, can be beneficial in treatment of dyslipidemia. Lifestyle modification with exercise and appropriate nutrition can decrease the risk of atherosclerosis due to dyslipidemia. Of note, some information is being carried forward from prior records for informational purposes only and is being cited so that efficiency, safety and quality of the patient's care is not compromised This note was prepared using voice recognition software and direct typing Please excuse inadvertent building maintenance technician or typing errors, or uncorrected word substitutions Although every attempt has been made by the provider to proofread this document, occasional misspellings and typographical errors may still be present Due to the previous pandemic, and the use of personal protective equipment (PPE) This may decrease voice recognition accuracy Inadvertent building maintenance technician errors may occur 05/30/2024 Essential (primary) hypertension (ICD-10 - I10) 06/27/2024 Essential (primary) hypertension (ICD-10 - I10) Acute Concerns/Problem List: 06/27/2024 Will refer the patient to cardiology for bradycardia workup including likely Holter monitoring and perhaps ILR Hemodynamics are stable today Will continue amlodipine, no second agent at this time A1c is a little up at 7.8 we will continue to monitor Should be able to return to work Thursday Hyperlipidemia continue statin Colonoscopy due in 2024 Of note, some information is being carried forward from prior records for informational purposes only and is being cited so that efficiency, safety and quality of the patient's care is not compromised This note was prepared using voice recognition software and direct typing Please excuse inadvertent building maintenance technician or typing errors, or uncorrected word substitutions Although every attempt has been made by the provider to proofread this document, occasional misspellings and typographical errors may still be present Due to the previous pandemic, and the use of personal protective equipment (PPE) This may decrease voice recognition accuracy Inadvertent building maintenance technician errors may occur 06/27/2024 Sinus bradycardia (ICD-10 - R00.1) Acute Concerns/Problem List: 06/27/2024 Will refer the patient to cardiology for bradycardia workup including likely Holter monitoring and perhaps ILR Hemodynamics are stable today Will continue amlodipine, no second agent at this time A1c is a little up at 7.8 we will continue to monitor Should be able to return to work Thursday Hyperlipidemia continue statin Colonoscopy due in 2024 Of note, some information is being carried forward from prior records for informational purposes only and is being cited so that efficiency, safety and quality of the patient's care is not compromised This note was prepared using voice recognition software and direct typing Please excuse inadvertent building maintenance technician or typing errors, or uncorrected word substitutions Although every attempt has been made by the provider to proofread this document, occasional misspellings and typographical errors may still be present Due to the previous pandemic, and the use of personal protective equipment (PPE) This may decrease voice recognition accuracy Inadvertent building maintenance technician errors may occur 09/19/2024 Essential (primary) hypertension (ICD-10 - I10) Acute Concerns/Problem List: 09/19/2024 Lets update comprehensive labs He will be due for Medicare visit in the fall Lets refer back to cardiology He is also due for colonoscopy screening as he is 10 years due we will refer to GI He will continue metformin and Jardiance for age-appropriate A1c Of note, some information is being carried forward from prior records for informational purposes only and is being cited so that efficiency, safety and quality of the patient's care is not compromised This note was prepared using voice recognition software and direct typing Please excuse inadvertent building maintenance technician or typing errors, or uncorrected word substitutions Although every attempt has been made by the provider to proofread this document, occasional misspellings and typographical errors may still be present Due to the previous pandemic, and the use of personal protective equipment (PPE) This may decrease voice recognition accuracy Inadvertent building maintenance technician errors may occur 09/19/2024 Type 2 diabetes mellitus without complication, without long-term current use of insulin (ICD-10 - E11.9) Acute Concerns/Problem List: 09/19/2024 Lets update comprehensive labs He will be due for Medicare visit in the fall Lets refer back to cardiology He is also due for colonoscopy screening as he is 10 years due we will refer to GI He will continue metformin and Jardiance for age-appropriate A1c Of note, some information is being carried forward from prior records for informational purposes only and is being cited so that efficiency, safety and quality of the patient's care is not compromised This note was prepared using voice recognition software and direct typing Please excuse inadvertent building maintenance technician or typing errors, or uncorrected word substitutions Although every attempt has been made by the provider to proofread this document, occasional misspellings and typographical errors may still be present Due to the previous pandemic, and the use of personal protective equipment (PPE) This may decrease voice recognition accuracy Inadvertent building maintenance technician errors may occur 09/19/2024 Hyperlipidemia, unspecified (ICD-10 - E78.5) Acute Concerns/Problem List: 09/19/2024 Lets update comprehensive labs He will be due for Medicare visit in the fall Lets refer back to cardiology He is also due for colonoscopy screening as he is 10 years due we will refer to GI He will continue metformin and Jardiance for age-appropriate A1c Of note, some information is being carried forward from prior records for informational purposes only and is being cited so that efficiency, safety and quality of the patient's care is not compromised This note was prepared using voice recognition software and direct typing Please excuse inadvertent building maintenance technician or typing errors, or uncorrected word substitutions Although every attempt has been made by the provider to proofread this document, occasional misspellings and typographical errors may still be present Due to the previous pandemic, and the use of personal protective equipment (PPE) This may decrease voice recognition accuracy Inadvertent building maintenance technician errors may occur 06/27/2024 Type 2 diabetes mellitus without complication, without long-term current use of insulin (ICD-10 - E11.9) Acute Concerns/Problem List: 06/27/2024 Will refer the patient to cardiology for bradycardia workup including likely Holter monitoring and perhaps ILR Hemodynamics are stable today Will continue amlodipine, no second agent at this time A1c is a little up at 7.8 we will continue to monitor Should be able to return to work Thursday Hyperlipidemia continue statin Colonoscopy due in 2024 Of note, some information is being carried forward from prior records for informational purposes only and is being cited so that efficiency, safety and quality of the patient's care is not compromised This note was prepared using voice recognition software and direct typing Please excuse inadvertent building maintenance technician or typing errors, or uncorrected word substitutions Although every attempt has been made by the provider to proofread this document, occasional misspellings and typographical errors may still be present Due to the previous pandemic, and the use of personal protective equipment (PPE) This may decrease voice recognition accuracy Inadvertent building maintenance technician errors may occur 02/25/2024 Encounter for screening for other disorder (ICD-10 - Z13.89) Acute Concerns/Problem List: 02/25/2024 MAWV Patient overall well today and offers no complaints. Chronic conditions are well-controlled and stable at this time Diabetes will continue with SGLT as well as metformin Renal function is preserved Hemoglobin A1c 02/24/24 7.2, previously 6.5 in October Hypertension is stable on current regimen as well - will order cuff for at home monitoring Hyperlipidemia continue statin Colonoscopy due in 2024 Insurance changing after May 17, inquiring about remaining with us and what insurances we do take Directed to our photographic specialist We discussed in detail the management of diabetes mellitus. Emphasis was paid on nutrition, low carbohydrate diet with good fat and protein sources, fruits and vegetables was discussed. Exercise was recommended. Incorporation of daily walking into a routine was discussed. A pedometer goal of 10,000 steps was discussed. Management of diabetes mellitus along with medications to treat the condition was discussed. Importance of diabetic foot exam, diabetic eye exam, urine microalbumin analysis annually was discussed. Side effects of diabetic medications were discussed again. Patient agrees to take medications as prescribed and comply with lifestyle modifications. Reviewed with patient the importance of medication and treatment plan compliance with BP goal of less then 140/90 per JNC 8 guidelines based on patient's age. This will ensure optimal health outcomes and prevent target organ damage. Made aware that uncontrolled hypertension may be silent and result in a stroke, heart attack, renal failure or even . Discussed the rationale for individualized medication regimen and the effects of their BP. Instructed to seek emergent care if the patient develops a headache, blurry vision, dizziness, chest pain or pressure. ASCVD is a stepwise approach for all adult patients, including those with known ASCVD This risk estimate is a standardized guideline to predict risk and recommend management strategies for those at risk of ASCVD Risk of cardiovascular event (Coronary or stroke or nonfatal [place] or stroke) In the next 10 years We discussed the role of cholesterol and atherosclerosis. Cholesterols broken down into some particles. Cholesterol very important for her body and has an important role in the synthesis of various hormones and neurotransmitters. However, today's cholesterol can have potential complications. Small density LDL particles that are oxidized or particularly dangerous. HDL cholesterol can have a protective effect. Elevated triglycerides levels are also dangerous. An elevated triglyceride and HDL ratio could be a sign of insulin resistance. Statins, fibrates, niacin, fish oil, DHEA, can be beneficial in treatment of dyslipidemia. Lifestyle modification with exercise and appropriate nutrition can decrease the risk of atherosclerosis due to dyslipidemia. Of note, some information is being carried forward from prior records for informational purposes only and is being cited so that efficiency, safety and quality of the patient's care is not compromised This note was prepared using voice recognition software and direct typing Please excuse inadvertent building maintenance technician or typing errors, or uncorrected word substitutions Although every attempt has been made by the provider to proofread this document, occasional misspellings and typographical errors may still be present Due to the previous pandemic, and the use of personal protective equipment (PPE) This may decrease voice recognition accuracy Inadvertent building maintenance technician errors may occur 06/27/2024 Hyperlipidemia, unspecified (ICD-10 - E78.5) Acute Concerns/Problem List: 06/27/2024 Will refer the patient to cardiology for bradycardia workup including likely Holter monitoring and perhaps ILR Hemodynamics are stable today Will continue amlodipine, no second agent at this time A1c is a little up at 7.8 we will continue to monitor Should be able to return to work Thursday Hyperlipidemia continue statin Colonoscopy due in 2024 Of note, some information is being carried forward from prior records for informational purposes only and is being cited so that efficiency, safety and quality of the patient's care is not compromised This note was prepared using voice recognition software and direct typing Please excuse inadvertent building maintenance technician or typing errors, or uncorrected word substitutions Although every attempt has been made by the provider to proofread this document, occasional misspellings and typographical errors may still be present Due to the previous pandemic, and the use of personal protective equipment (PPE) This may decrease voice recognition accuracy Inadvertent building maintenance technician errors may occur 02/25/2024 Essential (primary) hypertension (ICD-10 - I10) Acute Concerns/Problem List: 02/25/2024 MAWV Patient overall well today and offers no complaints. Chronic conditions are well-controlled and stable at this time Diabetes will continue with SGLT as well as metformin Renal function is preserved Hemoglobin A1c 02/24/24 7.2, previously 6.5 in October Hypertension is stable on current regimen as well - will order cuff for at home monitoring Hyperlipidemia continue statin Colonoscopy due in 2024 Insurance changing after May 17, inquiring about remaining with us and what insurances we do take Directed to our photographic specialist We discussed in detail the management of diabetes mellitus. Emphasis was paid on nutrition, low carbohydrate diet with good fat and protein sources, fruits and vegetables was discussed. Exercise was recommended. Incorporation of daily walking into a routine was discussed. A pedometer goal of 10,000 steps was discussed. Management of diabetes mellitus along with medications to treat the condition was discussed. Importance of diabetic foot exam, diabetic eye exam, urine microalbumin analysis annually was discussed. Side effects of diabetic medications were discussed again. Patient agrees to take medications as prescribed and comply with lifestyle modifications. Reviewed with patient the importance of medication and treatment plan compliance with BP goal of less then 140/90 per JNC 8 guidelines based on patient's age. This will ensure optimal health outcomes and prevent target organ damage. Made aware that uncontrolled hypertension may be silent and result in a stroke, heart attack, renal failure or even . Discussed the rationale for individualized medication regimen and the effects of their BP. Instructed to seek emergent care if the patient develops a headache, blurry vision, dizziness, chest pain or pressure. ASCVD is a stepwise approach for all adult patients, including those with known ASCVD This risk estimate is a standardized guideline to predict risk and recommend management strategies for those at risk of ASCVD Risk of cardiovascular event (Coronary or stroke or nonfatal [place] or stroke) In the next 10 years We discussed the role of cholesterol and atherosclerosis. Cholesterols broken down into some particles. Cholesterol very important for her body and has an important role in the synthesis of various hormones and neurotransmitters. However, today's cholesterol can have potential complications. Small density LDL particles that are oxidized or particularly dangerous. HDL cholesterol can have a protective effect. Elevated triglycerides levels are also dangerous. An elevated triglyceride and HDL ratio could be a sign of insulin resistance. Statins, fibrates, niacin, fish oil, DHEA, can be beneficial in treatment of dyslipidemia. Lifestyle modification with exercise and appropriate nutrition can decrease the risk of atherosclerosis due to dyslipidemia. Of note, some information is being carried forward from prior records for informational purposes only and is being cited so that efficiency, safety and quality of the patient's care is not compromised This note was prepared using voice recognition software and direct typing Please excuse inadvertent building maintenance technician or typing errors, or uncorrected word substitutions Although every attempt has been made by the provider to proofread this document, occasional misspellings and typographical errors may still be present Due to the previous pandemic, and the use of personal protective equipment (PPE) This may decrease voice recognition accuracy Inadvertent building maintenance technician errors may occur 09/19/2024 Hypothyroidism, unspecified type (ICD-10 - E03.9) Acute Concerns/Problem List: 09/19/2024 Lets update comprehensive labs He will be due for Medicare visit in the fall Lets refer back to cardiology He is also due for colonoscopy screening as he is 10 years due we will refer to GI He will continue metformin and Jardiance for age-appropriate A1c Of note, some information is being carried forward from prior records for informational purposes only and is being cited so that efficiency, safety and quality of the patient's care is not compromised This note was prepared using voice recognition software and direct typing Please excuse inadvertent building maintenance technician or typing errors, or uncorrected word substitutions Although every attempt has been made by the provider to proofread this document, occasional misspellings and typographical errors may still be present Due to the previous pandemic, and the use of personal protective equipment (PPE) This may decrease voice recognition accuracy Inadvertent building maintenance technician errors may occur 09/19/2024 Sinus bradycardia (ICD-10 - R00.1) Acute Concerns/Problem List: 09/19/2024 Lets update comprehensive labs He will be due for Medicare visit in the fall Lets refer back to cardiology He is also due for colonoscopy screening as he is 10 years due we will refer to GI He will continue metformin and Jardiance for age-appropriate A1c Of note, some information is being carried forward from prior records for informational purposes only and is being cited so that efficiency, safety and quality of the patient's care is not compromised This note was prepared using voice recognition software and direct typing Please excuse inadvertent building maintenance technician or typing errors, or uncorrected word substitutions Although every attempt has been made by the provider to proofread this document, occasional misspellings and typographical errors may still be present Due to the previous pandemic, and the use of personal protective equipment (PPE) This may decrease voice recognition accuracy Inadvertent building maintenance technician errors may occur 06/27/2024 Hypothyroidism, unspecified type (ICD-10 - E03.9) Acute Concerns/Problem List: 06/27/2024 Will refer the patient to cardiology for bradycardia workup including likely Holter monitoring and perhaps ILR Hemodynamics are stable today Will continue amlodipine, no second agent at this time A1c is a little up at 7.8 we will continue to monitor Should be able to return to work Thursday Hyperlipidemia continue statin Colonoscopy due in 2024 Of note, some information is being carried forward from prior records for informational purposes only and is being cited so that efficiency, safety and quality of the patient's care is not compromised This note was prepared using voice recognition software and direct typing Please excuse inadvertent building maintenance technician or typing errors, or uncorrected word substitutions Although every attempt has been made by the provider to proofread this document, occasional misspellings and typographical errors may still be present Due to the previous pandemic, and the use of personal protective equipment (PPE) This may decrease voice recognition accuracy Inadvertent building maintenance technician errors may occur 02/25/2024 Type 2 diabetes mellitus without complication, without long-term current use of insulin (ICD-10 - E11.9) Acute Concerns/Problem List: 02/25/2024 MAWV Patient overall well today and offers no complaints. Chronic conditions are well-controlled and stable at this time Diabetes will continue with SGLT as well as metformin Renal function is preserved Hemoglobin A1c 02/24/24 7.2, previously 6.5 in October Hypertension is stable on current regimen as well - will order cuff for at home monitoring Hyperlipidemia continue statin Colonoscopy due in 2024 Insurance changing after May 17, inquiring about remaining with us and what insurances we do take Directed to our photographic specialist We discussed in detail the management of diabetes mellitus. Emphasis was paid on nutrition, low carbohydrate diet with good fat and protein sources, fruits and vegetables was discussed. Exercise was recommended. Incorporation of daily walking into a routine was discussed. A pedometer goal of 10,000 steps was discussed. Management of diabetes mellitus along with medications to treat the condition was discussed. Importance of diabetic foot exam, diabetic eye exam, urine microalbumin analysis annually was discussed. Side effects of diabetic medications were discussed again. Patient agrees to take medications as prescribed and comply with lifestyle modifications. Reviewed with patient the importance of medication and treatment plan compliance with BP goal of less then 140/90 per JNC 8 guidelines based on patient's age. This will ensure optimal health outcomes and prevent target organ damage. Made aware that uncontrolled hypertension may be silent and result in a stroke, heart attack, renal failure or even . Discussed the rationale for individualized medication regimen and the effects of their BP. Instructed to seek emergent care if the patient develops a headache, blurry vision, dizziness, chest pain or pressure. ASCVD is a stepwise approach for all adult patients, including those with known ASCVD This risk estimate is a standardized guideline to predict risk and recommend management strategies for those at risk of ASCVD Risk of cardiovascular event (Coronary or stroke or nonfatal [place] or stroke) In the next 10 years We discussed the role of cholesterol and atherosclerosis. Cholesterols broken down into some particles. Cholesterol very important for her body and has an important role in the synthesis of various hormones and neurotransmitters. However, today's cholesterol can have potential complications. Small density LDL particles that are oxidized or particularly dangerous. HDL cholesterol can have a protective effect. Elevated triglycerides levels are also dangerous. An elevated triglyceride and HDL ratio could be a sign of insulin resistance. Statins, fibrates, niacin, fish oil, DHEA, can be beneficial in treatment of dyslipidemia. Lifestyle modification with exercise and appropriate nutrition can decrease the risk of atherosclerosis due to dyslipidemia. Of note, some information is being carried forward from prior records for informational purposes only and is being cited so that efficiency, safety and quality of the patient's care is not compromised This note was prepared using voice recognition software and direct typing Please excuse inadvertent building maintenance technician or typing errors, or uncorrected word substitutions Although every attempt has been made by the provider to proofread this document, occasional misspellings and typographical errors may still be present Due to the previous pandemic, and the use of personal protective equipment (PPE) This may decrease voice recognition accuracy Inadvertent building maintenance technician errors may occur 02/25/2024 Hyperlipidemia, unspecified (ICD-10 - E78.5) Acute Concerns/Problem List: 02/25/2024 MAWV Patient overall well today and offers no complaints. Chronic conditions are well-controlled and stable at this time Diabetes will continue with SGLT as well as metformin Renal function is preserved Hemoglobin A1c 02/24/24 7.2, previously 6.5 in October Hypertension is stable on current regimen as well - will order cuff for at home monitoring Hyperlipidemia continue statin Colonoscopy due in 2024 Insurance changing after May 17, inquiring about remaining with us and what insurances we do take Directed to our photographic specialist We discussed in detail the management of diabetes mellitus. Emphasis was paid on nutrition, low carbohydrate diet with good fat and protein sources, fruits and vegetables was discussed. Exercise was recommended. Incorporation of daily walking into a routine was discussed. A pedometer goal of 10,000 steps was discussed. Management of diabetes mellitus along with medications to treat the condition was discussed. Importance of diabetic foot exam, diabetic eye exam, urine microalbumin analysis annually was discussed. Side effects of diabetic medications were discussed again. Patient agrees to take medications as prescribed and comply with lifestyle modifications. Reviewed with patient the importance of medication and treatment plan compliance with BP goal of less then 140/90 per JNC 8 guidelines based on patient's age. This will ensure optimal health outcomes and prevent target organ damage. Made aware that uncontrolled hypertension may be silent and result in a stroke, heart attack, renal failure or even . Discussed the rationale for individualized medication regimen and the effects of their BP. Instructed to seek emergent care if the patient develops a headache, blurry vision, dizziness, chest pain or pressure. ASCVD is a stepwise approach for all adult patients, including those with known ASCVD This risk estimate is a standardized guideline to predict risk and recommend management strategies for those at risk of ASCVD Risk of cardiovascular event (Coronary or stroke or nonfatal [place] or stroke) In the next 10 years We discussed the role of cholesterol and atherosclerosis. Cholesterols broken down into some particles. Cholesterol very important for her body and has an important role in the synthesis of various hormones and neurotransmitters. However, today's cholesterol can have potential complications. Small density LDL particles that are oxidized or particularly dangerous. HDL cholesterol can have a protective effect. Elevated triglycerides levels are also dangerous. An elevated triglyceride and HDL ratio could be a sign of insulin resistance. Statins, fibrates, niacin, fish oil, DHEA, can be beneficial in treatment of dyslipidemia. Lifestyle modification with exercise and appropriate nutrition can decrease the risk of atherosclerosis due to dyslipidemia. Of note, some information is being carried forward from prior records for informational purposes only and is being cited so that efficiency, safety and quality of the patient's care is not compromised This note was prepared using voice recognition software and direct typing Please excuse inadvertent building maintenance technician or typing errors, or uncorrected word substitutions Although every attempt has been made by the provider to proofread this document, occasional misspellings and typographical errors may still be present Due to the previous pandemic, and the use of personal protective equipment (PPE) This may decrease voice recognition accuracy Inadvertent building maintenance technician errors may occur 09/19/2024 LBBB (left bundle branch block) (ICD-10 - I44.7) Acute Concerns/Problem List: 09/19/2024 Lets update comprehensive labs He will be due for Medicare visit in the fall Lets refer back to cardiology He is also due for colonoscopy screening as he is 10 years due we will refer to GI He will continue metformin and Jardiance for age-appropriate A1c Of note, some information is being carried forward from prior records for informational purposes only and is being cited so that efficiency, safety and quality of the patient's care is not compromised This note was prepared using voice recognition software and direct typing Please excuse inadvertent building maintenance technician or typing errors, or uncorrected word substitutions Although every attempt has been made by the provider to proofread this document, occasional misspellings and typographical errors may still be present Due to the previous pandemic, and the use of personal protective equipment (PPE) This may decrease voice recognition accuracy Inadvertent building maintenance technician errors may occur 06/27/2024 LBBB (left bundle branch block) (ICD-10 - I44.7) Acute Concerns/Problem List: 06/27/2024 Will refer the patient to cardiology for bradycardia workup including likely Holter monitoring and perhaps ILR Hemodynamics are stable today Will continue amlodipine, no second agent at this time A1c is a little up at 7.8 we will continue to monitor Should be able to return to work Thursday Hyperlipidemia continue statin Colonoscopy due in 2024 Of note, some information is being carried forward from prior records for informational purposes only and is being cited so that efficiency, safety and quality of the patient's care is not compromised This note was prepared using voice recognition software and direct typing Please excuse inadvertent building maintenance technician or typing errors, or uncorrected word substitutions Although every attempt has been made by the provider to proofread this document, occasional misspellings and typographical errors may still be present Due to the previous pandemic, and the use of personal protective equipment (PPE) This may decrease voice recognition accuracy Inadvertent building maintenance technician errors may occur 09/19/2024 Colon cancer screening (ICD-10 - Z12.11) Acute Concerns/Problem List: 09/19/2024 Lets update comprehensive labs He will be due for Medicare visit in the fall Lets refer back to cardiology He is also due for colonoscopy screening as he is 10 years due we will refer to GI He will continue metformin and Jardiance for age-appropriate A1c Of note, some information is being carried forward from prior records for informational purposes only and is being cited so that efficiency, safety and quality of the patient's care is not compromised This note was prepared using voice recognition software and direct typing Please excuse inadvertent building maintenance technician or typing errors, or uncorrected word substitutions Although every attempt has been made by the provider to proofread this document, occasional misspellings and typographical errors may still be present Due to the previous pandemic, and the use of personal protective equipment (PPE) This may decrease voice recognition accuracy Inadvertent building maintenance technician errors may occur 02/25/2024 Hypothyroidism, unspecified type (ICD-10 - E03.9) Acute Concerns/Problem List: 02/25/2024 MAWV Patient overall well today and offers no complaints. Chronic conditions are well-controlled and stable at this time Diabetes will continue with SGLT as well as metformin Renal function is preserved Hemoglobin A1c 02/24/24 7.2, previously 6.5 in October Hypertension is stable on current regimen as well - will order cuff for at home monitoring Hyperlipidemia continue statin Colonoscopy due in 2024 Insurance changing after May 17, inquiring about remaining with us and what insurances we do take Directed to our photographic specialist We discussed in detail the management of diabetes mellitus. Emphasis was paid on nutrition, low carbohydrate diet with good fat and protein sources, fruits and vegetables was discussed. Exercise was recommended. Incorporation of daily walking into a routine was discussed. A pedometer goal of 10,000 steps was discussed. Management of diabetes mellitus along with medications to treat the condition was discussed. Importance of diabetic foot exam, diabetic eye exam, urine microalbumin analysis annually was discussed. Side effects of diabetic medications were discussed again. Patient agrees to take medications as prescribed and comply with lifestyle modifications. Reviewed with patient the importance of medication and treatment plan compliance with BP goal of less then 140/90 per JNC 8 guidelines based on patient's age. This will ensure optimal health outcomes and prevent target organ damage. Made aware that uncontrolled hypertension may be silent and result in a stroke, heart attack, renal failure or even . Discussed the rationale for individualized medication regimen and the effects of their BP. Instructed to seek emergent care if the patient develops a headache, blurry vision, dizziness, chest pain or pressure. ASCVD is a stepwise approach for all adult patients, including those with known ASCVD This risk estimate is a standardized guideline to predict risk and recommend management strategies for those at risk of ASCVD Risk of cardiovascular event (Coronary or stroke or nonfatal WI or stroke) In the next 10 years We discussed the role of cholesterol and atherosclerosis. Cholesterols broken down into some particles. Cholesterol very important for her body and has an important role in the synthesis of various hormones and neurotransmitters. However, today's cholesterol can have potential complications. Small density LDL particles that are oxidized or particularly dangerous. HDL cholesterol can have a protective effect. Elevated triglycerides levels are also dangerous. An elevated triglyceride and HDL ratio could be a sign of insulin resistance. Statins, fibrates, niacin, fish oil, DHEA, can be beneficial in treatment of dyslipidemia. Lifestyle modification with exercise and appropriate nutrition can decrease the risk of atherosclerosis due to dyslipidemia. Of note, some information is being carried forward from prior records for informational purposes only and is being cited so that efficiency, safety and quality of the patient's care is not compromised This note was prepared using voice recognition software and direct typing Please excuse inadvertent building maintenance technician or typing errors, or uncorrected word substitutions Although every attempt has been made by the provider to proofread this document, occasional misspellings and typographical errors may still be present Due to the previous pandemic, and the use of personal protective equipment (PPE) This may decrease voice recognition accuracy Inadvertent building maintenance technician errors may occur Plan Of Treatment Pending Test Test Name Order Date Echocardiogram 07/05/2021 Colonoscopy 09/19/2024 Holter Test 07/05/2021 EKG 07/05/2021 COMPREHENSIVE METABOLIC PANEL 04/15/2021 HEMOGLOBIN A1C 12/11/2020 HEMOGLOBIN A1C 04/15/2021 LIPID PANEL 11/19/2020 TSH 11/19/2020 Uric Acid 11/19/2020 CT Head w/o Contrast 07/05/2021 LIPID PANEL, STANDARD 07/22/2023 LIPID PANEL, STANDARD 11/25/2023 LIPID PANEL, STANDARD 09/19/2024 COMPREHENSIVE METABOLIC PANEL 09/19/2024 COMPREHENSIVE METABOLIC PANEL 11/25/2023 COMPREHENSIVE METABOLIC PANEL 07/22/2023 CBC (INCLUDES DIFF/PLT) 07/22/2023 CBC (INCLUDES DIFF/PLT) 11/25/2023 CBC (INCLUDES DIFF/PLT) 09/19/2024 URINALYSIS, COMPLETE 07/22/2023 URINALYSIS, COMPLETE 11/25/2023 URINALYSIS, COMPLETE 09/19/2024 HEMOGLOBIN A1c 09/19/2024 HEMOGLOBIN A1c 11/25/2023 HEMOGLOBIN A1c 07/22/2023 TSH 07/22/2023 TSH 11/25/2023 TSH W/REFLEX TO FT4 09/19/2024 VITAMIN D,25-OH,TOTAL,IA 09/19/2024 VITAMIN D,25-OH,TOTAL,IA 11/25/2023 VITAMIN D, 1,25 DIHYDROXY LC/MS/MS 07/21 COMPLETE URINALYSIS 11/19/2020 Future Test Test Name Order Date 25OH VITAMIN D 12/12/2021 CBC (COMPLETE BLOOD COUNT) 12/12/2021 COMPREHENSIVE METABOLIC PANEL 12/12/2021 HEMOGLOBIN A1C 12/12/2021 LIPID PANEL 12/12/2021 MICROALBUMIN, URINE 12/12/2021 TSH WITH REFLEX TO FT4 12/12/2021 URINALYSIS W/REFLEX CULTURE 12/12/2021 HEMOGLOBIN A1C 05/31/2022 25OH VITAMIN D 02/02/2023 CBC (COMPLETE BLOOD COUNT) WITH DIFF COMPREHENSIVE METABOLIC PANEL 02/02/2023 HEMOGLOBIN A1C 02/02/2023 LIPID PANEL 02/02/2023 TSH WITH REFLEX TO FT4 02/02/2023 URINALYSIS W/REFLEX CULTURE 02/02/2023 Next Appt Details Provider Name:PRETTY MILES, 02/28/2025 10:15:00 AM, [address] [facility], [facility] [address], [place], [address], Insurance Providers Payer Name Payer Address Payer Phone Subscriber Number Group Number Insured Name Patient Relationship to Insured Coverage Start Date Coverage End Date [facility] [address] [place] [address] [phone] [id number] MARQUITA CAMEJO Self - patient is the insured 4 Medical (General) History Medical History History ICD Code hypertension hyperlipidemia diabetes mellitus Gout Arthritis prostate cancer Surgical History Surgery Date(Month/Year) prostate removal 2007
--- OUTSIDE RECORDS SUMMARY | 2024-11-28 09:27 | XMS_ITS | Clinical Summary ---
Author Organization [facility] Address [address] [place] [address] Care Team Providers Care Ballistics Teacher Name Role Phone Xin Bowman MD Primary Care Provider [phone] Allergies No known active allergies Medications Medication Sig Dispensed Refills Start Date End Date Status sildenafil (VIAGRA) 100 MG tablet TAKE 1 TABLET 60 MINUTES PRIOR TO SEXUAL ACTIVITY ONCE DAILY 0 08/02/2020 Active Lancets 30G MISC USE TO TEST BLOOD GLUCOSE TWICE DAILY 0 08/08/2020 Active Accu-Chek Jenna Plus test strip USE TO TEST BLOOD GLUCOSE TWICE DAILY 0 08/08/2020 Active metFORMIN (GLUCOPHAGE) tablet 500 mg Take 500 mg by mouth 2 (two) times a day with meals. 0 Active amLODIPine (NORVASC) tablet 5 mg Take 5 mg by mouth daily. 0 Active Active Problems Problem Noted Date Diagnosed Date Dupuytren contracture 08/03/2020 Overview: Right greater than left Social History Tobacco Use Types Packs/Day Years Used Date Smoking Tobacco: Never Smokeless Tobacco: Never Alcohol Use Standard Drinks/Week Comments Yes 5 (1 standard drink = 0.6 oz pur e alcohol) Sex and Gender Information Value Date Recorded Sex Assigned at Not on file Gender Identity Not on file Sexual Orientation Not on file Job Start Date Occupation Industry Not on file Not on file Not on file Last Filed Vital Signs Vital Sign Reading Time Taken Comments Blood Pressure - - Pulse - - Temperature - - Respiratory Rate - - Oxygen Saturation - - Inhaled Oxygen Concentration - - Weight 80.7 kg (178 lb) 08/31/2020 11:30 AM EDT Height 167.6 cm (5' 6 ) 08/31/2020 11:30 AM EDT Body Mass Index 28.73 08/31/2020 11:30 AM EDT Plan of Treatment Health Maintenance Due Date Last Done Comments Hepatitis C Screening 1950 COVID-19 Vaccine (#1) 1950 Depression Screening 1963 Preventative Health Evaluation 1969 DTap / Tdap / Td (1 - Tdap) 1970 Colon Cancer Screening (Colonoscopy) 01/23/1996 Shingrix-Zoster Vaccine (1 of 2) 2001 Fall Risk Assessment 01/23/2016 Pneumococcal Vaccine (1 of 1 - PCV) 01/23/2016 Influenza Vaccine (#1) 2025 RSV Adult > 60+ Yrs or Pregn ant (1 - 1-dose 75+ series) 2026 Hepatitis B Vaccines Aged Out No long er eligible based on patient's age to complete this topic RSV Ped < 20 months Aged Out No longe r eligible based on patient's age to complete this topic Care Teams Ballistics Teacher Relationship Specialty Start Date End Date Xin Bowman MD [facility] [address] [id number] PCP - General Internal Medicine 08/03/20
[2024-11-28 10:35] LABS: Prostate Specific Antigen 0.17 ng/mL (<0.05-4.0)
== END 2024-11-28 09:06 | disposition home or self-care (01) ==
LOC: HO.LAB 09:05
PROVIDERS: Visit Provider Urology
DX: C61 Malignant neoplasm of prostate (principal)
CPT/HCPCS: 36415; 84153

== ENCOUNTER 2024-12-13 11:14 | Outpatient (AMB) | payer MEDICARE, SELFPAY ==
--- NOTE | 2024-12-13 11:32 | A.OFFVIS_ITS ---
Intake Visit Reasons: 4m/PSA Intake Note: Patient presents to the office today for 4 mo follow up Urology meds: sildenafil ,allopurinol, clotrimazole Betamethasone PVR: 13 mls PSA done 11/28/24 : 0.17 Blood thinners:none Power Distributor Required: No Accompanied by: Self / Same As Patient Allergies meperidine (Demerol) Allergy (Unknown, Verified 12/13/24 11:37) Unknown HPI Comments Details: Ajay is a very pleasant male. He is a patient of Dr Noonan. He is seen for the following urologic conditions - prostate cancer with delayed failure and salvage radiation - erectile dysfunction - phimosis Urinary Symptoms Review - Difficulty with directed urination; urine streams erratically. - Pain when retracting the foreskin. - Presence of minor cuts on the foreskin. PSA slight rise 0.17 Phimosis with balanitis Does wish to move ahead with circumcision Prostate cancer: Diagnosed April 2007, Luisa 3 + 3 initial therapy radical prostatectomy, EXBRT 2016 Prostate cancer was diagnosed 04/2007. PSA 5.9. The Luisa grade is 3+3. TNM Classification of Malignant Tumours (TNM) pT1c- N0. The D'Winsome (NCCN) risk category is Low Risk (PSA< 10, Gl < 7, T1c). Initial therapy included Primary treatment, radical prostatectomy 06/25, VIU 05/28 Additional treatment - rising PSA 04/02 , External Beam Radiation, Dr. Holloway [facility] 6700Gy, 37 fractions Recent labs included a PSA (prostate-specific antigen) 10/30 0.2, 07/31 0.2, 10/31 0.4, 01/31 0.4 12/01 < 0.1, 06/04 < 0.1, 12/02 < 0.1, 07/06 < 0.1, 12/03 < 0.1, 07/07 < 0.1 - 08/05 <0.1, 02/05 <0.1, 08/06 <0.1, 02/06 <0.1, 08/07 <0.1, 08/09 0.13, 12/09 0.17 Associated conditions erectile dysfunction Yes Therapeutic plan: Continue with surveillance - every 6 months since failure to control Erectile dysfunction Secondary to treatment for prostate cancer Good response to sildenafil 100 mg 2020 [facility] Medical History Diabetes mellitus Arthritis HTN (hypertension) Urgency-frequency syndrome Erectile dysfunction Urethral stricture Prostate cancer Erectile dysfunction Surgical History History of prostate surgery Review of Systems Const Denies chills and Denies fever(s) Card Reports no additional complaints and Denies syncope Resp Denies cough GI Denies abdominal pain and Denies heartburn Reports as per HPI and Denies change in libido Neuro Denies syncope Psych Denies change in libido Endo Denies change in libido Physical Exam Const General: cooperative, healthy appearing, comfortable and no acute distress Orientation/consciousness: patient oriented x3 HEENT Face and sinus: Yes normal facial exam Mouth: moist mucous membranes Neck Neck: Yes normal visual inspection, Yes full ROM and Yes trachea midline Chest Chest palpation & inspection: normal inspection of the chest Resp Effort & Inspection: normal respiratory effort, able to speak in complete sentences and no respiratory distress GI Inspection: Yes normal to inspection Back/Spine/Pelvis Cervical Spine: normal cervical lordosis Thoracic/Lumbar Spine: thoracic and lumbar spine normal to inspection Skin General skin exam: no rashes or lesions noted Neuro General: patient oriented x3, gait normal, tone normal and moves all extremities Extrem General: Yes normal to inspection and Yes capillary refill normal Assessment & Plan Assessment & Plan (1) Prostate cancer: Comment: 2006 [place] 3 + 3 initial treatment prostatectomy, boost radiation 2016 for rising PSA Code(s): C61 - Malignant neoplasm of prostate Category: Medical (2) Phimosis: Code(s): N47.1 - Phimosis Category: Medical Plan Risks, benefits and alternatives to therapy were discussed. These include but are not limited to infection, bleeding, damage to local organs and tissues, need for further interventions. Anesthetic risks regarding cardiac arrhythmia, blood clots, and potential mortality were discussed. The patient understands the typical recovery time and the outpatient nature of the procedure. After consideration of these risks the patient gives full informed consent and they wish to move ahead with the procedure. - circumcision Patient Instructions: This note is constructed using voice recognition software. While every effort has been made to ensure accuracy supply chain manager errors may have been included. Imaging studies, laboratory and physical exam results were discussed and reviewed in detail. No major barriers to patient understanding were identified. An opportunity to ask questions regarding the treatment plan was provided. All questions were answered. The patient expressed understanding and agreement with the above treatment plan. The patient is aware they should contact our office by phone for worsening of their current condition or the appearance of new urologic symptoms. Compliance is encouraged with any medications and followup testing that is ordered. It is a privilege to participate in the urologic care of your patient. If you have any questions or concerns regarding treatment for the above conditions, or other urologic issues, please do not hesitate to contact me. The office telephone contact is [phone]. Sincerely, Dr Ten Valente MD, [facility] - Urology Compassionate Specialist Care for the Genitourinary System Coding Level of Care Code Est Pt Level 4 (24042) Complex EM visit Add On G2211 Diagnoses Prostate cancer C61 Phimosis N47.1
--- OUTSIDE RECORDS SUMMARY | 2024-12-13 12:29 | XMS_ITS | Patient Health Record ---
[facility] [address] [address] Address [address] [place] [address] Care Team Providers Care Chemical Strength Tester Name Role Phone HELENE MARLOW Unavailable [phone] TEOFILOPRETTY Soto Unavailable [phone] Allergies No Known Allergies Results Component Value [...] sample collected in 7-14 days is recommended. Comp. Metabolic Panel (14)-3 [id number] Reviewed date:02/26/2024 11:29:33 AM Interpretation: Performing Lab:[facility] [place], [address] [place] [address], Phone - [phone], Director - Iliana Notes/Report: Glucose 131 70-99 [...] IU/L ALT (SGPT) 11 0-44 IU/L Lipid Panel-[id number] Reviewed date:02/26/2024 11:29:33 AM Interpretation: Performing Lab:[facility] [place], [address] [place] [address], Phone - [phone], Director - Iliana Notes/Report: Cholesterol, Total 131 100-199 mg/dL Triglycerides 65 0-149 mg/dL HDL Cholesterol 62 >39 mg/dL VLDL Cholesterol Sheldon 14 5-40 mg/dL LDL Chol Calc (NIH) 55 0-99 mg/dL Vitamin D, 86-Muvvmfs-[id number] Reviewed date:02/26/2024 11:29:33 AM Interpretation: Performing Lab:[facility] [place], [address] [place] [address], Phone - [phone], Director - Iliana Notes/Report: Vitamin D, 25-Hydroxy 22.0 30.0-100.0 ng/mL Vitamin D deficiency has been defined by the [place] of [employer] and an Endocrine Society practice guideline as a level of serum 25-OH vitamin D less than 20 ng/mL (1,2). The Endocrine Society went on to further define vitamin D insufficiency as a level between 21 and 29 ng/mL (2). 1. IOM ([place] of [employer]). 2010. Dietary reference intakes for calcium and D. [place]: The National Academies Press. 2. Vale MF, Tracy [place], Isaiah TOLEDO, et al. Evaluation, treatment, and prevention of vitamin D deficiency: an Endocrine Society clinical practice guideline. JCEM. 2010; 96(7):1911-30. CBC With Differential/Platel et-[id number] Reviewed date:02/26/2024 11:29:33 AM Interpretation: Performing Lab:[facility] [place], [address] [place] [address], [place], Phone - [phone], Director - Iliana Notes/Report: WBC 6.5 3.4-10.8 x10E3/uL RBC 4.89 [...] % Immature Grans (Abs) 0.0 0.0-0.1 x10E3/uL TSH-[id number] Reviewed date:02/26/2024 11:29:33 AM Interpretation: Performing Lab:[facility] [place], [address] [place] [address], Phone - [phone], Director - MDJodry Notes/Report: TSH 1.720 0.450-4.500 uIU/mL Urinalysis, Complete-[id number] Reviewed date:02/26/2024 11:29:33 AM Interpretation: Performing Lab:[facility] [place], [address] [place] [address], Phone - [phone], Director - MDJodry Notes/Report: Specific Shelton 1.025 1.005-1.030 pH 6.0 5.0-7.5 Urine-Color Yellow [...] /lpf Bacteria None seen None seen/Few Hemoglobin A3g-[id number] Reviewed date:02/26/2024 11:29:33 AM Interpretation: Performing Lab:[facility] [place], [address], [place], Phone - [phone], Director - Iliana Notes/Report: Hemoglobin A1c 7.2 4.8-5.6 % . Prediabetes: 5.7 - 6.4 Diabetes: >6.4 Glycemic control for adults with diabetes: <7.0 METHYLMALONIC ACID, SERUM Reviewed date:06/30/2024 08:59:00 AM Interpretation: Performing Lab: Notes/Report: Methylmalonic Acid 0.30 <0.40 umol/L If applicable, any drug confirmation testing reported here was developed and the performance characteristics determined by [facility]. This confirmation testing has not been cleared or approved by the FDA. The laboratory is regulated under CLIA as qualified to perform high-complexity testing. This test is used for patient testing purposes. It should not be regarded as investigational or for research. Test performed at [facility], [address] , [place] [address] Flory Hammer MD, PhD - Night Shift Supervisor Reason For Referral Reason [facility] Diagnosis 1 Asymptomatic bradyca rdia (R00.1) Diagnosis 2 Block, bundle branch , left (I44.7) [facility] [address] Referring Provider First Name PRETTY Referring Provider Last Name GINGER Referring Provider Speciality Internal M edicine Referred Provider Specialty Cardiology General Notes Ilene Kennedy 02/2025 09:36:27 AM > Referral faxed to [phone] and pt given phone [phone]. Referral Priority Routine Medications Medication SIG (Take, Route, Frequency, Duration) Notes Start Date End Date Status Jardiance 25 MG 1 tablet Orally Once a day; Duration: 90 days Active metFORMIN HCl 1000 MG TAKE 1 TABLET BY M OUTH TWICE DAILY; Duration: 30 Active Allopurinol 300 MG 1 tablet Orally Once a day; Duration: 90 days Active Jardiance 25 MG TAKE 1 TABLET BY JAVIER TH EVERY DAY 30; Duration: 30 Active amLODIPine Besylate 10 MG 1 tablet Orall y Once a day; Duration: 90 days Active metFORMIN HCl 1000 MG 1 tablet with a me al Orally twice a day; Duration: 90 days Active Atorvastatin Calcium 40 MG 1 tablet Oral ly Once a day; Duration: 90 days Active Carvedilol 12.5 MG TAKE 1 TABLET TWICE DAILY WITH FOOD; Duration: 90 Active Immunizations Vaccine Route Administration Date Status Comme nts influenza IM Intramuscular 02/02/2023 Administered Social History Tobacco Use: Social History Observation Description Date Details (start date - stop date) Never Smoker NA - NA Tobacco Use/Smoking Question Answer Notes Are you a nonsmoker Problems Problem Type SNOMED Code ICD Code Onset Dates Problem Status W/U Status Risk Notes Problem Malignant neoplasm of prostate (507758519) Malignant neoplasm of prostate (C61) Active confirmed Problem Hyperlipidemia (00222315) Hyperlipidemia, unspecified (E78.5) Active confirmed Problem Metabolic encephalopathy (26020387) Metabolic encephalopathy (G93.41) Active confirmed Problem Essential hypertension (67857598) Essential (primary) hypertension (I10) Active confirmed Problem Gout (47502071) Gout, unspecifie d (M10.9) Active confirmed Problem Adult health examination (064875519) Encounter for general adult medical examination without abnormal findings (Z00.00) Active confirmed Problem Lipid screening (916586161) Encounter for screening for lipoid disorders (Z13.220) Active confirmed Problem Colon cancer screening (089926342) Colon cancer screening (Z12.11) Active confirmed Problem Hyperlipidaemia (80207051) Hyperlipidemia, unspecified hyperlipidemia type (E78.5) Active confirmed Problem Adult health examination (683884951) Adult general medical exam (Z00.00) Active confirmed Problem Hypothyroidism (67950484) Hypothyroidism, unspecified type (E03.9) Active confirmed Problem Malignant tumor of prostate (300973113) Prostate cancer (C61) Active confirmed Problem Annual health maintenance examination (04716688) Annual physical exam (Z00.00) Active confirmed Problem Syncope and collapse (701961723) Syncope, unspecified syncope type (R55) Active confirmed Problem Vitamin D deficiency (24111408) Vitamin D deficiency (E55.9) Active confirmed Problem Diabetes mellitus screening (448183555) Diabetes mellitus screening (Z13.1) Active confirmed Problem Type II diabetes mellitus without complication (070822315) Type 2 diabetes mellitus without complication, without long-term current use of insulin (E11.9) Active confirmed Problem Hypoglycemia (642215579) Hypoglycemia (E16.2) Active confirmed Problem Avitaminosis D (90979765) Avitaminosis D (E55.9) Active confirmed Problem Endocrine/metaboli c screening (235487233) Encounter for screening for endocrine disorder (Z13.29) Active confirmed Problem Left bundle branch block (45657451) LBBB (left bundle branch block) (I44.7) Active confirmed Problem Asymptomatic bradycardia (7127850665) Asymptomatic bradycardia (R00.1) Active confirmed Problem Left bundle branch block (92426438) Block, bundle branch, left (I44.7) Active confirmed Vital Signs Heart Rate 64 /min 09/19/2024 Oximetry 98 % 09/19/2024 Blood pressure diastolic 76 mm Hg 09/19/2024 Height 65 in 09/19/2024 Blood pressure systolic 138 mm Hg 09/19/2024 Weight 168 lbs 09/19/2024 BMI 27.95 kg/m2 09/19/2024 Encounters Encounter Location Date Provider Diagnosis [facility] [address] [address] 02/25/2024 PRETTY MILES Annual physical exam Z00.00 ; Encounter for screening for depression Z13.31 ; Encounter for screening for other disorder Z13.89 ; Essential (primary) hypertension I10 ; Type 2 diabetes mellitus without complication, without long-term current use of insulin E11.9 ; Hyperlipidemia, unspecified E78.5 and Hypothyroidism, unspecified type E03.9 [facility] [address] [address] 06/27/2024 PRETTY MILES Essential (primary) hypertension I10 ; Sinus bradycardia R00.1 ; Type 2 diabetes mellitus without complication, without long-term current use of insulin E11.9 ; Hyperlipidemia, unspecified E78.5 ; Hypothyroidism, unspecified type E03.9 and LBBB (left bundle branch block) I44.7 [facility] [address] [address] 09/19/2024 PRETTY MILES Essential (primary) hypertension I10 ; Type 2 diabetes mellitus without complication, without long-term current use of insulin E11.9 ; Hyperlipidemia, unspecified E78.5 ; Hypothyroidism, unspecified type E03.9 ; Sinus bradycardia R00.1 ; LBBB (left bundle branch block) I44.7 and Colon cancer screening Z12.11 [facility] [address] [address] 05/30/2024 PRETTYBLANCA REDT Essential (primary) hypertension I10 [facility] [address] [facility] [address] [place] [address] 06/27/2024 PRETTY REDT [facility] [address] [facility] [address] [place] [address] 09/19/2024 PRETTY LIBBYHOT [facility] [address] [facility] [address] [place] [address] 09/20/[address] [facility] [address] [place] [address] 10/31/2024 TALSALENA GREENEAN [facility] [address] [address] 12/07/2024 PRETTY REDT Essential (primary) hypertension I10 Assessments Encounter Date Diagnosis (ICD Code) Assessment [...] insurances we do take Directed to our pre billing specialist We discussed in detail the management [...] cardiovascular event (Coronary or stroke or nonfatal MO or stroke) In the next 10 years [...] software and direct typing Please excuse inadvertent oil program compliance specialist or typing errors, or uncorrected word substitutions Although every attempt has been made by the provider to proofread this document, occasional misspellings and typographical errors may still be present Due to the previous pandemic, and the use of personal protective equipment (PPE) This may decrease voice recognition accuracy Inadvertent oil program compliance specialist errors may occur 02/25/2024 Annual physical exam [...] insurances we do take Directed to our pre billing specialist We discussed in detail the management [...] cardiovascular event (Coronary or stroke or nonfatal MO or stroke) In the next 10 years [...] software and direct typing Please excuse inadvertent oil program compliance specialist or typing errors, or uncorrected word substitutions Although every attempt has been made by the provider to proofread this document, occasional misspellings and typographical errors may still be present Due to the previous pandemic, and the use of personal protective equipment (PPE) This may decrease voice recognition accuracy Inadvertent oil program compliance specialist errors may occur 05/30/2024 Essential (primary) hypertension [...] software and direct typing Please excuse inadvertent oil program compliance specialist or typing errors, or uncorrected word substitutions Although every attempt has been made by the provider to proofread this document, occasional misspellings and typographical errors may still be present Due to the previous pandemic, and the use of personal protective equipment (PPE) This may decrease voice recognition accuracy Inadvertent oil program compliance specialist errors may occur 06/27/2024 Sinus bradycardia (ICD-10 [...] software and direct typing Please excuse inadvertent oil program compliance specialist or typing errors, or uncorrected word substitutions Although every attempt has been made by the provider to proofread this document, occasional misspellings and typographical errors may still be present Due to the previous pandemic, and the use of personal protective equipment (PPE) This may decrease voice recognition accuracy Inadvertent oil program compliance specialist errors may occur 09/19/2024 Essential (primary) hypertension [...] software and direct typing Please excuse inadvertent oil program compliance specialist or typing errors, or uncorrected word substitutions Although every attempt has been made by the provider to proofread this document, occasional misspellings and typographical errors may still be present Due to the previous pandemic, and the use of personal protective equipment (PPE) This may decrease voice recognition accuracy Inadvertent oil program compliance specialist errors may occur 09/19/2024 Type 2 diabetes [...] software and direct typing Please excuse inadvertent oil program compliance specialist or typing errors, or uncorrected word substitutions Although every attempt has been made by the provider to proofread this document, occasional misspellings and typographical errors may still be present Due to the previous pandemic, and the use of personal protective equipment (PPE) This may decrease voice recognition accuracy Inadvertent oil program compliance specialist errors may occur 12/07/2024 Essential (primary) hypertension (ICD-10 - I10) 09/19/2024 Hyperlipidemia, unspecified (ICD-10 - E78.5) Acute [...] software and direct typing Please excuse inadvertent oil program compliance specialist or typing errors, or uncorrected word substitutions Although every attempt has been made by the provider to proofread this document, occasional misspellings and typographical errors may still be present Due to the previous pandemic, and the use of personal protective equipment (PPE) This may decrease voice recognition accuracy Inadvertent oil program compliance specialist errors may occur 06/27/2024 Type 2 diabetes [...] software and direct typing Please excuse inadvertent oil program compliance specialist or typing errors, or uncorrected word substitutions Although every attempt has been made by the provider to proofread this document, occasional misspellings and typographical errors may still be present Due to the previous pandemic, and the use of personal protective equipment (PPE) This may decrease voice recognition accuracy Inadvertent oil program compliance specialist errors may occur 02/25/2024 Encounter for screening [...] insurances we do take Directed to our pre billing specialist We discussed in detail the management [...] cardiovascular event (Coronary or stroke or nonfatal MO or stroke) In the next 10 years [...] software and direct typing Please excuse inadvertent oil program compliance specialist or typing errors, or uncorrected word substitutions Although every attempt has been made by the provider to proofread this document, occasional misspellings and typographical errors may still be present Due to the previous pandemic, and the use of personal protective equipment (PPE) This may decrease voice recognition accuracy Inadvertent oil program compliance specialist errors may occur 06/27/2024 Hyperlipidemia, unspecified (ICD-10 [...] software and direct typing Please excuse inadvertent oil program compliance specialist or typing errors, or uncorrected word substitutions Although every attempt has been made by the provider to proofread this document, occasional misspellings and typographical errors may still be present Due to the previous pandemic, and the use of personal protective equipment (PPE) This may decrease voice recognition accuracy Inadvertent oil program compliance specialist errors may occur 02/25/2024 Essential (primary) hypertension [...] insurances we do take Directed to our pre billing specialist We discussed in detail the management [...] cardiovascular event (Coronary or stroke or nonfatal MO or stroke) In the next 10 years [...] software and direct typing Please excuse inadvertent oil program compliance specialist or typing errors, or uncorrected word substitutions Although every attempt has been made by the provider to proofread this document, occasional misspellings and typographical errors may still be present Due to the previous pandemic, and the use of personal protective equipment (PPE) This may decrease voice recognition accuracy Inadvertent oil program compliance specialist errors may occur 09/19/2024 Hypothyroidism, unspecified type [...] software and direct typing Please excuse inadvertent oil program compliance specialist or typing errors, or uncorrected word substitutions Although every attempt has been made by the provider to proofread this document, occasional misspellings and typographical errors may still be present Due to the previous pandemic, and the use of personal protective equipment (PPE) This may decrease voice recognition accuracy Inadvertent oil program compliance specialist errors may occur 09/19/2024 Sinus bradycardia (ICD-10 [...] software and direct typing Please excuse inadvertent oil program compliance specialist or typing errors, or uncorrected word substitutions Although every attempt has been made by the provider to proofread this document, occasional misspellings and typographical errors may still be present Due to the previous pandemic, and the use of personal protective equipment (PPE) This may decrease voice recognition accuracy Inadvertent oil program compliance specialist errors may occur 06/27/2024 Hypothyroidism, unspecified type [...] software and direct typing Please excuse inadvertent oil program compliance specialist or typing errors, or uncorrected word substitutions Although every attempt has been made by the provider to proofread this document, occasional misspellings and typographical errors may still be present Due to the previous pandemic, and the use of personal protective equipment (PPE) This may decrease voice recognition accuracy Inadvertent oil program compliance specialist errors may occur 02/25/2024 Type 2 diabetes [...] insurances we do take Directed to our pre billing specialist We discussed in detail the management [...] cardiovascular event (Coronary or stroke or nonfatal MO or stroke) In the next 10 years [...] software and direct typing Please excuse inadvertent oil program compliance specialist or typing errors, or uncorrected word substitutions Although every attempt has been made by the provider to proofread this document, occasional misspellings and typographical errors may still be present Due to the previous pandemic, and the use of personal protective equipment (PPE) This may decrease voice recognition accuracy Inadvertent oil program compliance specialist errors may occur 02/25/2024 Hyperlipidemia, unspecified (ICD-10 [...] insurances we do take Directed to our pre billing specialist We discussed in detail the management [...] cardiovascular event (Coronary or stroke or nonfatal MO or stroke) In the next 10 years [...] software and direct typing Please excuse inadvertent oil program compliance specialist or typing errors, or uncorrected word substitutions Although every attempt has been made by the provider to proofread this document, occasional misspellings and typographical errors may still be present Due to the previous pandemic, and the use of personal protective equipment (PPE) This may decrease voice recognition accuracy Inadvertent oil program compliance specialist errors may occur 09/19/2024 LBBB (left bundle [...] software and direct typing Please excuse inadvertent oil program compliance specialist or typing errors, or uncorrected word substitutions Although every attempt has been made by the provider to proofread this document, occasional misspellings and typographical errors may still be present Due to the previous pandemic, and the use of personal protective equipment (PPE) This may decrease voice recognition accuracy Inadvertent oil program compliance specialist errors may occur 06/27/2024 LBBB (left bundle [...] software and direct typing Please excuse inadvertent oil program compliance specialist or typing errors, or uncorrected word substitutions Although every attempt has been made by the provider to proofread this document, occasional misspellings and typographical errors may still be present Due to the previous pandemic, and the use of personal protective equipment (PPE) This may decrease voice recognition accuracy Inadvertent oil program compliance specialist errors may occur 09/19/2024 Colon cancer screening [...] software and direct typing Please excuse inadvertent oil program compliance specialist or typing errors, or uncorrected word substitutions Although every attempt has been made by the provider to proofread this document, occasional misspellings and typographical errors may still be present Due to the previous pandemic, and the use of personal protective equipment (PPE) This may decrease voice recognition accuracy Inadvertent oil program compliance specialist errors may occur 02/25/2024 Hypothyroidism, unspecified type [...] insurances we do take Directed to our pre billing specialist We discussed in detail the management [...] cardiovascular event (Coronary or stroke or nonfatal MO or stroke) In the next 10 years [...] software and direct typing Please excuse inadvertent oil program compliance specialist or typing errors, or uncorrected word substitutions Although every attempt has been made by the provider to proofread this document, occasional misspellings and typographical errors may still be present Due to the previous pandemic, and the use of personal protective equipment (PPE) This may decrease voice recognition accuracy Inadvertent oil program compliance specialist errors may occur Plan Of Treatment Pending [...] Provider Name:PRETTY MILES, 02/28/2025 10:15:00 AM, [address] [facility], [facility] [address], [place], [address], Insurance Providers Payer Name Payer Address Payer Phone Subscriber Number Group Number Insured Name Patient Relationship to Insured Coverage Start Date Coverage End Date [facility] [address] [place] [address] [phone] [id number] MARQUITA CAMEJO Self - patient is the insured 4 Medical (General) History Medical History History ICD Code hypertension hyperlipidemia diabetes mellitus Gout Arthritis prostate cancer Surgical History Surgery Date(Month/Year) prostate removal 2007
--- OUTSIDE RECORDS SUMMARY | 2024-12-13 12:29 | XMS_ITS | Clinical Summary ---
Author Organization [facility] Address [address] [place] [address] Care Team Providers Care Fur Remodeler Name Role Phone Xin Bowman MD Primary Care Provider [phone] Allergies No known active allergies Medications Medication [...] age to complete this topic Care Teams Fur Remodeler Relationship Specialty Start Date End Date Xin Bowman MD [facility] [address] [address] PCP - General Internal Medicine 08/03/20
--- OUTSIDE RECORDS SUMMARY | 2024-12-13 12:29 | XMS_ITS | Clinical Summary ---
Author Organization [facility] Address [address] [place] [address] Phone Care Team Providers Care Die Keeper Name Role Phone Mikey Noonan MD Primary Care Provider [phone] Allergies No known active allergies Medications amLODIPine [...] Description 09/27/2024 10:00 AM EDT Ancillary Procedure [facility] Cardiology [facility] [address] [facility] [address] [place] [phone] Sinus bradycardia 09/20/2024 Telephone [facility] Card[facility] [address] [facility] [address] [place] [phone] Kevon Dumont MD [id number] (ok to book); LOOP Enrollment (Enrolling patient [...] Tdap) 1970 Zoster Vaccines (1 of 2) 2001 RSV Immunization Adult Patients (1 - Risk 60-74 years 1-dose series) 2011 Colorectal Cancer Screening: Colonoscopy 04/20/2022 Hepatitis C Screening 04/20/2022 Social Influencers of Health Screening 04/20/2022 COVID-19 Vaccine ( season) 2024 03/21/2023, 04/09/2022, 04/12/2021, Additional history exists Depression Screening 05/18/2024 Diabetes: Annual Urine Albumin-Creatinine Ratio (uACR) 09/29/2024 [...] pauses noted. Narrative 10/28/2024 8:49 AM EDT [facility] DIAGNOSTIC TESTING DEPARTMENT [address] [place] [address] TEL: FAX: TYPE OF TEST: 30 day [...] mmol/L LAB CHEMISTRY METHOD 06/25/2024 7:53 AM [facility] Potassium 4.3 3.5 - 5.5 mmol/L LAB CHEMISTRY METHOD 06/25/2024 7:53 AM [facility] Chloride 113(H) 96 - 110 mmol/L LAB CHEMISTRY METHOD 06/25/2024 7:53 AM [facility] CO2 25 21 - 32 mmol/L LAB CHEMISTRY METHOD 06/25/2024 7:53 AM [facility] Anion Gap 5 3 - 11 LAB CHEMISTRY METHOD 06/25/2024 7:53 AM [facility] Glucose 117(H) 70 - 100 mg/dL LAB CHEMISTRY METHOD 06/25/2024 7:53 AM [facility] BUN 19 5 - 25 mg/dL LAB CHEMISTRY METHOD 06/25/2024 7:53 AM [facility] Creatinine 1.04 0.70 - 1.30 mg/dL LAB CHEMISTRY METHOD 06/25/2024 7:53 AM [facility] eGFR 76 >=60 mL/min/1. 73m2 LAB CHEMISTRY METHOD 06/25/2024 7:53 AM [facility] Comment:Calculation based on the Chronic Kidney Disease Epidemiology Collaboration (CKD-EPI) equation refit without adjustment for race. BUN/Creatinine Ratio 18.3 LAB CHEMISTRY METHOD 06/25/2024 7:53 AM [facility] Calcium 8.3(L) 8.5 - 10.5 mg/dL LAB CHEMISTRY METHOD 06/25/2024 7:53 AM [facility] Blood Venous blood specimen / Unknown Venipuncture / Unknown 06/25/2024 6:05 AM EST 06/25/2024 7:03 AM EST Greta Pack MD LAB BLOOD ORDERABLES Final R esult [facility] [address] [place] [address], * Lipid panel with reflex to direct LDL (06/23/2024 5:20 AM EST) Cholesterol 145 0 - 200 mg/dL LAB CHEMISTRY METHOD 06/23/2024 9:08 AM [facility] Triglycerides 58 0 - 150 mg/dL LAB CHEMISTRY METHOD 06/23/2024 9:08 AM [facility] HDL 72 >=40 mg/dL LAB CHEMISTRY METHOD 06/23/2024 9:08 AM [facility] LDL Calculated 61 0 - 100 mg/dL LAB CHEMISTRY METHOD 06/23/2024 9:[address] [facility] VLDL Cholesterol Sheldon 11.6 mg/dL LAB CHEMISTRY METHOD 06/23/2024 9:08 AM [facility] Non HDL Chol. (LDL+VLDL) 73 <145 mg/dL LAB CHEMISTRY METHOD 06/23/2024 9:08 AM [facility] Chol/HDL Ratio 2.0 0.0 - 4.4 LAB CHEMISTRY METHOD 06/23/2024 9:[address] [facility] Blood Venous blood specimen / Unknown Venipuncture / Unknown 06/23/2024 5:20 AM EST 06/23/2024 5:44 AM EST us Dedrick Mullen MD LAB BLOOD ORDERABLES Final Re sult Performing Organization Address City/[facility]/ZIP Co de Phone Number [facility] [address] [place] [address], [place] [phone] * (ABNORMAL) Hemoglobin A1c (06/23/2024 5:20 AM EST) Hemoglobin A1C 7.8(H) <6.5 % LAB CHEMISTRY METHOD 06/23/2024 12:14 PM [facility] Mean Bld Glu Estim. 177 mg/dL LAB CHEMISTRY METHOD 06/23/2024 12:14 PM [facility] Blood Venous blood specimen / Unknown Venipuncture / Unknown 06/23/2024 5:20 AM EST 06/23/2024 5:43 AM EST us Dedrick Mullen MD LAB BLOOD ORDERABLES Final Re sult Performing Organization Address City/[facility]/ZIP Co de Phone Number [facility] [address] [place] [address], [place] [phone] from Last 3 Months or Most Recently Relevant to Health Maintenance Insurance [facility] Advance Directives * Full Code - Default [...] currently active code status orders. Care Teams Die Keeper Relationship Specialty Start Date End Date Mikey Noonan MD [address] [place] [id number] PCP - General Internal Medicine 08/02/21
== END 2024-12-13 12:09 | disposition home or self-care (01) ==
LOC: HO.HUSH 11:14
PROVIDERS: PCP Internal Medicine; Visit Provider Urology
DX: C61 Malignant neoplasm of prostate (principal); N47.1 Phimosis; Z13.9 Encounter for screening, unspecified
CPT/HCPCS: 99214; G2211

== ENCOUNTER → 2024-12-13 11:14 | Outpatient (BNVA) | payer MEDICARE, SELFPAY | PROVIDERS: PCP Internal Medicine; Visit Provider Urology | DX: C61 Malignant neoplasm of prostate (principal); N47.1 Phimosis | CPT/HCPCS: 51798; 81003; 99212 ==

== ENCOUNTER 2025-02-20 08:28 | Day surgery (SDC) | payer MEDICARE, SELFPAY ==
--- OUTSIDE RECORDS SUMMARY | 2025-02-02 16:15 | XMS_ITS | Clinical Summary ---
Author Organization [facility] Address [address] [place] [address] Care Team Providers Care Turkey Farmer Name Role Phone Xin Bowman MD Primary Care Provider [phone] Allergies No known active allergies Medications Medication [...] age to complete this topic Care Teams Turkey Farmer Relationship Specialty Start Date End Date Xin Bowman MD [facility] [address] [address] PCP - General Internal Medicine 08/03/20
--- OUTSIDE RECORDS SUMMARY | 2025-02-02 16:15 | XMS_ITS | Clinical Summary ---
Author Organization [facility] Address [address] [place] [address] Phone Care Team Providers Care B2B Account Executive Name Role Phone Mikey Noonan MD Primary Care Provider [phone] Allergies No known active allergies Medications amLODIPine [...] Encounters Date Type Department Care Team Description 01/13/2025 Telephone [facility] Cardiology [facility] [address] [place] [address] Jonatan Martinez, RECEIVING BARN CUSTODIAN from Last 3 Months Medical History Medical [...] Screening: Colonoscopy 04/20/2022 Hepatitis C Screening 04/20/2022 Medicare Annual Wellness Visit 04/20/2022 Social Influencers of Health Screening 04/20/2022 Depression Screening 05/18/2024 Diabetes: Annual Urine Albumin-Creatinine Ratio (uACR) 09/29/2024 COVID-19 Vaccine ( season) 2025 03/21/2023, 04/09/2022, 04/12/2021, Additional history exists Influenza Vaccine (#1) 2025 , 04/09/2022, 03/18/2019, Additional history exists Falls Risk Assessment 06/25/2025 06/25/2024 Diabetes: Blood Sugar Control Test (HGBA1C) 07/15/2025 01/12/2025, 06/23/2024 Diabetes: Annual GFR (Glomerular Filtration Rate) 01/12/2026 01/12/2025, 06/25/2024, 06/24/2024, Additional history exists Hypertension/CHF/CAD Annual BMP Blood Test 01/12/2026 01/12/2025, 06/25/2024, 06/24/2024, Additional history exists Cholesterol Screening (Lipid Panel) 01/12/2030 01/12/2025, 06/23/2024 Pneumococcal Vaccine: 50+ Years Completed 09/07/2021, [...] Procedure Name Priority Date/Time Associated Diagnosis Comments CBC WITH AUTO DIFFERENTIAL Routine 01/12/2025 8:22 AM EDT Routine general medical examination at a health care facility Screening for lipoid disorders Screening for diabetes mellitus Avitaminosis D Screening for thyroid disorder URINALYSIS WITH REFLEX MICROSCOPIC Routine 01/12/2025 8:22 AM EDT Routine general medical examination at a health care facility Screening for lipoid disorders Screening for diabetes mellitus Avitaminosis D Screening for thyroid disorder CBC AND DIFFERENTIAL Routine 01/12/2025 8:22 AM EDT Routine general medical examination at a health care facility Screening for lipoid disorders Screening for diabetes mellitus Avitaminosis D Screening for thyroid disorder COMPREHENSIVE METABOLIC PANEL Routine 01/12/2025 8:22 AM EDT Routine general medical examination at a health care facility Screening for lipoid disorders Screening for diabetes mellitus Avitaminosis D Screening for thyroid disorder URINALYSIS WITH REFLEX MICROSCOPIC Routine 01/12/2025 8:22 AM EDT Routine general medical examination at a health care facility Screening for lipoid disorders Screening for diabetes mellitus Avitaminosis D Screening for thyroid disorder LIPID PANEL WITH REFLEX TO DIRECT LDL Routine 01/12/2025 8:22 AM EDT Routine general medical examination at a health care facility Screening for lipoid disorders Screening for diabetes mellitus Avitaminosis D Screening for thyroid disorder Abnormal finding of blood chemistry, unspecified HEMOGLOBIN A1C Routine 01/12/2025 8:22 AM EDT Routine general medical examination at a health care facility Screening for lipoid disorders Screening for diabetes mellitus Avitaminosis D Screening for thyroid disorder VITAMIN D 25 HYDROXY Routine 01/12/2025 8:22 AM EDT Routine general medical examination at a health care facility Screening for lipoid disorders Screening for diabetes mellitus Avitaminosis D Screening for thyroid disorder THYROID STIMULATING HORMONE WITH REFLEX TO FREE T4 AND FREE T3 Routine 01/12/2025 8:22 AM EDT Routine general medical examination at a health care facility Screening for lipoid disorders Screening for diabetes mellitus Avitaminosis D Screening for thyroid disorder Abnormal finding of blood chemistry, unspecified Prediabetes from Last 3 Months Results * (ABNORMAL) Urinalysis with reflex microscopic (01/12/2025 8:22 AM EDT) [facility] Signature Specific [place] Urine 1.035(H) 1.003 - 1.030 LAB URINALYSIS - AUTOMATED METHOD 01/12/2025 10:17 AM EDT [facility] pH, Urine 6.5 5.0 - 8.0 pH LAB URINALYSIS - AUTOMATED METHOD 01/12/2025 10:17 AM [facility] Leukocytes, Urine Trace(A) Negative LAB URINALYSIS - AUTOMATED METHOD 01/12/2025 10:17 AM [facility] Nitrite, Urine Negative Negative LAB URINALYSIS - AUTOMATED METHOD 01/12/2025 10:17 AM [facility] Protein, Urine Negative <=Trace mg/dL LAB URINALYSIS - AUTOMATED METHOD 01/12/2025 10:17 AM [facility] Glucose, Urine >=1000(A) Negative mg/dL LAB URINALYSIS - AUTOMATED METHOD 01/12/2025 10:17 AM [facility] Ketones, Urine Negative Negative mg/dL LAB URINALYSIS - AUTOMATED METHOD 01/12/2025 10:17 AM [facility] Urobilinogen, Urine 1.0 0.2 - 1.0 mg/dL LAB URINALYSIS - AUTOMATED METHOD 01/12/2025 10:17 AM [facility] Bilirubin, Urine Negative Negative LAB URINALYSIS - AUTOMATED METHOD 01/12/2025 10:17 AM [facility] Blood, Urine Negative Negative LAB URINALYSIS - AUTOMATED METHOD 01/12/2025 10:17 AM [facility] RBC, Urine 1.4 0 - 4 /HPF LAB URINALYSIS - AUTOMATED METHOD 01/12/2025 10:17 AM [facility] WBC, Urine 14.7(H) 0 - 4 /HPF LAB URINALYSIS - AUTOMATED METHOD 01/12/2025 10:17 AM [facility] Squamous Epithelial, Urine 26 0 - 60 /LPF LAB URINALYSIS - AUTOMATED METHOD 01/12/2025 10:17 AM [facility] Bacteria, Urine Negative Negative /HPF LAB URINALYSIS - AUTOMATED METHOD 01/12/2025 10:17 AM [facility] Hyaline Casts, Urine 0.0 0 - 3 /LPF LAB URINALYSIS - AUTOMATED METHOD 01/12/2025 10:17 AM EDT [facility] Yeast, Urine Present(A) None /HPF 01/12/2025 10:17 AM EDT [facility] Comment:This is an appended report. These results have been appended to a previously final verified report. Urine Urine specimen obtained by clean catch procedure / Unknown Non-blood Collection / Unknown 01/12/2025 8:22 AM EDT 01/12/2025 9:28 AM EDT Jonatan Martinez NP LAB URINE ORDERABLES Edited R esult - Final Performing Organization Address [facility]/ZIP Co de Phone Number [facility] [address] [place] [address], [place] [phone] * Thyroid stimulating hormone with reflex to free t4 and free t3 (01/12/2025 8:22 AM EDT) TSH 1.77 0.40 - 4.00 mcIU/mL LAB CHEMISTRY METHOD 01/12/2025 10:50 AM EDT [facility] Blood Venous blood specimen / Unknown Venipuncture / Unknown 01/12/2025 8:22 AM EDT 01/12/2025 9:27 AM EDT Jonatan Martinez NP LAB BLOOD ORDERABLES Final Re sult [facility] [address] [place] [address], [place] [phone] * Lipid panel with reflex to direct LDL (01/12/2025 8:22 AM EDT) Cholesterol 126 0 - 200 mg/dL LAB CHEMISTRY METHOD 01/12/2025 10:13 AM EDT [facility] Triglycerides 71 0 - 150 mg/dL LAB CHEMISTRY METHOD 01/12/2025 10:13 AM EDT [facility] HDL 54 >=40 mg/dL LAB CHEMISTRY METHOD 01/12/2025 10:13 AM EDT [facility] LDL Calculated 58 0 - 100 mg/dL LAB CHEMISTRY METHOD 01/12/2025 10:13 AM EDT [facility] Comment:Estimated LDL Calcul ated using equation: Total cholesterol - HDL cholesterol - (Triglycerides/5) VLDL Cholesterol Sheldon 14.2 mg/dL LAB CHEMISTRY METHOD 01/12/2025 10:13 AM EDT [facility] Non HDL Chol. (LDL+VLDL) 72 <145 mg/dL LAB CHEMISTRY METHOD 01/12/2025 10:13 AM EDT [facility] Chol/HDL Ratio 2.3 0.0 - 4.4 LAB CHEMISTRY METHOD 01/12/2025 10:13 AM EDT [facility] Blood Venous blood specimen / Unknown Venipuncture / Unknown 01/12/2025 8:22 AM EDT 01/12/2025 9:27 AM EDT us Jonatan Martinez RECEIVING BARN CUSTODIAN LAB BLOOD ORDERABLES Final Re sult [facility] [address] [place] [address], * (ABNORMAL) CBC auto differential (01/12/2025 8:22 AM EDT) WBC 5.3 4.8 - 10.8 K/mcL LAB HEMETOLOGY METHOD 01/12/2025 9:33 AM EDT [facility] RBC 5.10 4.50 - 5.50 M/mcL LAB HEMETOLOGY METHOD 01/12/2025 9:33 AM EDT [facility] Hemoglobin 15.6 13.5 - 17.5 g/dL LAB HEMETOLOGY METHOD 01/12/2025 9:33 AM EDT [facility] Hematocrit 46.7 42.0 - 54.0 % LAB HEMETOLOGY METHOD 01/12/2025 9:33 AM [facility] MCV 92.1 79.0 - 98.0 FL LAB HEMETOLOGY METHOD 01/12/2025 9:33 AM [facility] MCH 30.8 27.0 - 32.0 pcg LAB HEMETOLOGY METHOD 01/12/2025 9:33 AM [facility] MCHC 33.4 32.0 - 37.0 g/dL LAB HEMETOLOGY METHOD 01/12/2025 9:33 AM [facility] RDW 13.2 11.0 - 15.0 % LAB HEMETOLOGY METHOD 01/12/2025 9:33 AM [facility] Platelets 191 130 - 400 K/mcL LAB HEMETOLOGY METHOD 01/12/2025 9:33 AM [facility] MPV 9.6 7.0 - 11.0 FL LAB HEMETOLOGY METHOD 01/12/2025 9:33 AM [facility] NRBC 0.0 <1.0 % LAB HEMETOLOGY METHOD 01/12/2025 9:33 AM [facility] NRBC Absolute 0.00 <0.10 K/mcL LAB HEMETOLOGY METHOD 01/12/2025 9:33 AM [facility] Neutrophils Relative 67.3 % LAB HEMETOLOGY METHOD 01/12/2025 9:33 AM [facility] Lymphocytes Relative 18.2 % LAB HEMETOLOGY METHOD 01/12/2025 9:33 AM [facility] Monocytes Relative 11.1 % LAB HEMETOLOGY METHOD 01/12/2025 9:33 AM [facility] Eosinophils Relative 2.4 % LAB HEMETOLOGY METHOD 01/12/2025 9:33 AM EDT [facility] Basophils Relative 0.6 % LAB HEMETOLOGY METHOD 01/12/2025 9:33 AM EDT [facility] Immature Granulocytes Relative 0.4 % LAB HEMETOLOGY METHOD 01/12/2025 9:33 AM EDT [facility] Neutrophils Absolute 3.58 1.50 - 7.00 K/mcL LAB HEMETOLOGY METHOD 01/12/2025 9:33 AM EDT [facility] Lymphocytes Absolute 0.97(L) 1.00 - 5.00 K/mcL LAB HEMETOLOGY METHOD 01/12/2025 9:33 AM EDT [facility] Monocytes Absolute 0.59 0.20 - 1.00 K/mcL LAB HEMETOLOGY METHOD 01/12/2025 9:33 AM EDT [facility] Eosinophils Absolute 0.13 0.00 - 0.50 K/mcL LAB HEMETOLOGY METHOD 01/12/2025 9:33 AM EDT [facility] Basophils Absolute 0.03 0.00 - 0.20 K/mcL LAB HEMETOLOGY METHOD 01/12/2025 9:33 AM EDT [facility] Immature Granulocytes Absolute 0.02 0.00 - 0.03 K/mcL LAB HEMETOLOGY METHOD 01/12/2025 9:33 AM EDT [facility] Blood Venous blood specimen / Unknown Venipuncture / Unknown 01/12/2025 8:22 AM EDT 01/12/2025 9:27 AM EDT us Jonatan Martinez NP LAB BLOOD ORDERABLES Final Re sult [facility] [address] [place] [address], * Vitamin D 25 hydroxy (01/12/2025 8:22 AM EDT) Vit D, 25-Hydroxy 33.8 30.0 - 80.0 ng/mL LAB CHEMISTRY METHOD 01/12/2025 10:50 AM EDT [facility] Blood Venous blood specimen / Unknown Venipuncture / Unknown 01/12/2025 8:22 AM EDT 01/12/2025 9:27 AM EDT Jonatan Martinez RECEIVING BARN CUSTODIAN LAB BLOOD ORDERABLES Final Re sult Performing Organization Address [facility] de Phone Number [facility] [address] [place] [address], [place] [phone] * (ABNORMAL) Hemoglobin A1c (01/12/2025 8:22 AM EDT) [facility] Hemoglobin A1C 7.2(H) <6.5 % LAB CHEMISTRY METHOD 01/12/2025 10:35 AM EDT [facility] Mean Bld Glu Estim. 160 mg/dL LAB CHEMISTRY METHOD 01/12/2025 10:35 AM EDT [facility] Blood Venous blood specimen / Unknown Venipuncture / Unknown 01/12/2025 8:22 AM EDT 01/12/2025 9:27 AM EDT Jonatan Martinez RECEIVING BARN CUSTODIAN LAB BLOOD ORDERABLES Final Re sult Performing Organization Address [facility]/ZIP Co de Phone Number [facility] [address] [place] [address], [place] [phone] * (ABNORMAL) Comprehensive metabolic panel (01/12/2025 8:22 AM EDT) [facility] Sodium 141 133 - 145 mmol/L LAB CHEMISTRY METHOD 01/12/2025 10:13 AM EDT [facility] Potassium 4.7 3.5 - 5.5 mmol/L LAB CHEMISTRY METHOD 01/12/2025 10:13 AM EDT [facility] Chloride 106 96 - 110 mmol/L LAB CHEMISTRY METHOD 01/12/2025 10:13 AM [facility] CO2 30 21 - 32 mmol/L LAB CHEMISTRY METHOD 01/12/2025 10:13 AM [facility] Anion Gap 5 3 - 11 LAB CHEMISTRY METHOD 01/12/2025 10:13 AM [facility] Glucose 121(H) 70 - 100 mg/dL LAB CHEMISTRY METHOD 01/12/2025 10:13 AM [facility] BUN 17 5 - 25 mg/dL LAB CHEMISTRY METHOD 01/12/2025 10:13 AM [facility] Creatinine 1.07 0.70 - 1.30 mg/dL LAB CHEMISTRY METHOD 01/12/2025 10:13 AM [facility] eGFR 73 >=60 mL/min/1. 73m2 LAB CHEMISTRY METHOD 01/12/2025 10:13 AM [facility] Comment:Calculation based on the Chronic Kidney Disease Epidemiology Collaboration (CKD-EPI) equation refit without adjustment for race. BUN/Creatinine Ratio 15.9 LAB CHEMISTRY METHOD 01/12/2025 10:13 AM [facility] Calcium 8.8 8.5 - 10.5 mg/dL LAB CHEMISTRY METHOD 01/12/2025 10:13 AM [facility] AST (SGOT) 19 10 - 42 unit/L LAB CHEMISTRY METHOD 01/12/2025 10:13 AM [facility] ALT (SGPT) 29 10 - 60 unit/L LAB CHEMISTRY METHOD 01/12/2025 10:13 AM [facility] Alkaline Phosphatase 93 42 - 121 unit/L LAB CHEMISTRY METHOD 01/12/2025 10:13 AM [facility] Total Protein 7.2 6.0 - 8.0 g/dL LAB CHEMISTRY METHOD 01/12/2025 10:13 AM [facility] Albumin 3.9 3.2 - 5.0 g/dL LAB CHEMISTRY METHOD 01/12/2025 10:13 AM EDT [facility] Total Bilirubin 0.5 0.0 - 1.4 mg/dL LAB CHEMISTRY METHOD 01/12/2025 10:13 AM EDT [facility] Blood Venous blood specimen / Unknown Venipuncture / Unknown 01/12/2025 8:22 AM EDT 01/12/2025 9:27 AM EDT us Jonatan Martinez RECEIVING BARN CUSTODIAN LAB BLOOD ORDERABLES Final Re sult [facility] ([facility]) [facility] [address] [place] [address], from Last 3 Months Insurance [facility] [employer] MEDICARE Advance Directives * Full Code - Default [...] currently active code status orders. Care Teams B2B Account Executive Relationship Specialty Start Date End Date Mikey Nonoan MD [address] [place] [id number] PCP - General Internal Medicine 08/02/21
--- NOTE | 2025-02-16 14:49 | HO.ANESPROP2 ---
Documented by User: Yolanda Lindo NP 02/16/25 14:50 HPI - Anesthesia Eval Consult details Narrative: 75yo M for Circumcision Anesthesia Pre-Procedure Meds Is the patient on any of the following meds?: SGLT2 Inhib PMFSH Active Problems Active Problems: All Active Problems Phimosis (Acute) Erectile dysfunction associated with type 2 diabetes mellitus (Acute) Prostate cancer (Acute) Past Medical History Medical History Diabetes mellitus Arthritis HTN (hypertension) Urgency-frequency syndrome Erectile dysfunction Urethral stricture Prostate cancer Erectile dysfunction Surgical History Surgical History History of prostate surgery Social History Social History Are you a primary direct care worker to a significant other at home: No Do you presently have visiting nurse or other home services: No Patient Tobacco Use Status: Never used Tobacco Have you been hit, kicked, punched, or otherwise hurt by someone within the past year? If so, by whom?: No Are you DNR?: No Advance Directives: No Advance Directives Information Provided: Yes Poor oral hygiene: Yes Meds Allergies Allergy/AdvReac Type Severity Reaction Status Date / Time meperidine (Demerol) Allergy Unknown Unknown Verified 02/20/25 09:26 Home Medications ?Medication ?Instructions ?Recorded ?Confirmed ?Last Taken ?Type amlodipine 10 mg tablet 10 mg PO DAILY 02/05/21 09/02/23 Unknown History atorvastatin 40 mg tablet 40 mg PO DAILY 02/05/21 09/02/23 Unknown History blood sugar diagnostic (Accu-Chek #10 ea 02/05/21 09/02/23 Unknown History Jenna Plus test strips) lancets 30 gauge #100 ea 02/05/21 09/02/23 Unknown History metformin 500 mg tablet 500 mg PO BID 02/05/21 09/02/23 Unknown History triamcinolone acetonide 0.5 % 1 appl topical BID 02/05/21 09/02/23 Unknown History topical cream alcohol swabs (DropSafe Alcohol pad topical 01/28/22 09/02/23 Unknown History Prep Pads) empagliflozin 10 mg tablet mg PO 01/28/22 09/02/23 Unknown History (Jardiance) Assessment and Plan Assessment Anesthesia Assessment: Chart Reviewed Documented by User: Tram Sinclair MD 02/20/25 09:31 [facility] Past Medical History Medical History Diabetes mellitus Arthritis HTN (hypertension) Urgency-frequency syndrome Erectile dysfunction Urethral stricture Prostate cancer Erectile dysfunction Family History Family history of problems with anesthesia: No Surgical History Surgical History History of prostate surgery History of Problems with Anesthesia: No Social History Social History Are you a primary direct care worker to a significant other at home: No Do you presently have visiting nurse or other home services: No Patient Tobacco Use Status: Never used Tobacco Have you been hit, kicked, punched, or otherwise hurt by someone within the past year? If so, by whom?: No Are you DNR?: No Advance Directives: No Advance Directives Information Provided: Yes Poor oral hygiene: Yes Meds Allergies Allergy/AdvReac Type Severity Reaction Status Date / Time meperidine (Demerol) Allergy Unknown Unknown Verified 02/20/25 09:26 Home Medications ?Medication ?Instructions ?Recorded ?Confirmed ?Last Taken ?Type amlodipine 10 mg tablet 10 mg PO DAILY 02/05/21 09/02/23 Unknown History atorvastatin 40 mg tablet 40 mg PO DAILY 02/05/21 09/02/23 Unknown History blood sugar diagnostic (Accu-Chek #10 ea 02/05/21 09/02/23 Unknown History Jenna Plus test strips) lancets 30 gauge #100 ea 02/05/21 09/02/23 Unknown History metformin 500 mg tablet 500 mg PO BID 02/05/21 09/02/23 Unknown History triamcinolone acetonide 0.5 % 1 appl topical BID 02/05/21 09/02/23 Unknown History topical cream alcohol swabs (DropSafe Alcohol pad topical 01/28/22 09/02/23 Unknown History Prep Pads) empagliflozin 10 mg tablet mg PO 01/28/22 09/02/23 Unknown History (Jardiance) Exam Airway Mallampati Class: II TM Dist: >3cm Neck ROM: Full Partial: Upper Heart: rrr Lungs: cta Assessment and Plan Assessment Anesthesia Assessment: Anesthesia Plan Discussed Final Anesthetic Review Family History of Problems with Anesthesia: No History of Problems with Anesthesia: No NPO: Yes ASA Class: III Final Preanesthetic Review: No Changes in Pt Med Stat, Meds/Allgs Chart Reviewed and Consent Obtained/Reviewed Patient Risk: Intermediate Procedure Risk: Intermediate Anesthetic Plan Anesthetic Plan: GA Disposition: Standard PACU
[2025-02-20 09:05] VITALS: BMI 26.8
[2025-02-20] MEDS: Lactated Ringers 1,000 ML 100 ML IVCONT (09:24)
[2025-02-20 09:26] LABS: Glucose, Whole Blood 166 mg/dL (60-115)
[2025-02-20 09:56] VITALS: BP 150/69; PULSE 73; RESP 18; TEMP 36.6; O2SAT 98
--- NOTE | 2025-02-20 10:49 | MHC.SHP ---
Pre-Procedural Eval Section A - 24 Hr Update-Section A only Date of Service: 02/20/25 Changes since office visit: No Cold of Flu in the past 2 weeks, No New Medical Problems, No Changes in Medication and No Patient answered all questions The patient has been examined within 24 hours of the surgical procedure. The History & Physical has been completed within 30 days and I have reviewed it.: No Section B - Complete if H&P > 30 days Chief Complaint: Phimosis Details of Present Illness: Circumcision Allergies: Allergies Allergy/AdvReac Type Severity Reaction Status Date / Time meperidine (Demerol) Allergy Unknown Unknown Verified 02/20/25 09:26 Review of Systems Sugical H&P ROS: Negative: Constitution, Cardiovascular, Respiratory, Neurological, Psychiatric, Hem-Onc, Allergic/Immunologic, Gastrointestinal, Genitourinary, Musculoskeletal, Integumentary, Endocrine and Eyes/Ears/Nose/Throat Exam Surgical H&P Exam: Normal: HEENT, Normal: Heart, Normal: Lungs, Normal: Extremities, Normal: Abdomen, Normal: Skin and Normal: Neurological Plan Diagnosis/Plan: Unchanged I have reviewed the history and physical and performed a pertinent physical examination on my patient. No changes have occurred unless specified. Time Spent With Patient Time: Total time managing care of this patient today ____ minutes.
--- NOTE | 2025-02-20 11:46 | P.OP_ITS ---
Operative Note Operative Note Date of Service: 02/20/25 Narrative: PreOperative Diagnosis: Balanitis and phimosis Post Operative Diagnosis: Balanitis and phimosis Procedure: Circumcision Surgeon: Dr Ten Valente Anesthesia: General Indications for procedure: Recurring balanitis with inability to withdrawal foreskin of penile glans. Risks and benefits including bleeding, scarring, need for revision surgery been discussed. Procedure: After informed consent was verified the patient was brought to the operating room and placed in a supine position. Anesthesia was administered per protocol. The patient was prepped and draped sterile fashion. Safety pause time-out was performed. Antibiotics have been given. The penis was examined and proximal incision marked that lay just proximal to the resting position of the penile sulcus. This was followed around the circumference of the penis. A penile ring block was performed using 1% lido jonas with no epinephrine. Approximately 8 cc. The proximal incision was developed with sharp blade running circumferentially around the penis. The skin was to give a 1 cm separation between the foreskin in the remaining penile shaft skin. The foreskin was withdrawn and the penile glans exposed. A a distal incision was made approximately 5 mm proximal to the penile sulcus. At the area of the frenulum care was taken to empty the penile frenulum intact. Using clamps the dorsal skin was elevated. Using Metzenbaum scissors the avascular plane was entered and proximal and distal incision were joined. The bridging skin was elevated and clamped. It was then divided using Bovie. The sleeve of tissue was then removed circumferentially around the penis using cautery in order to minimize bleeding. The shaft was then examined in any bleeding areas were controlled. More local anesthetic was injected into the plane beneath avascular plane to help with postprocedure pain management. The skin edges after they were appropriately examined low reapposed. A 3-0 chromic suture was placed at 12:00 o'clock and 06:00 o'clock positions. Interrupted 3-0 was then placed the 09:00 o'clock and 3 o'clock position. Each quadrant was then filled with 3 sutures using 4-0 chromic. At the completion of the procedure there was adequate hemostasis. The incision was washed and dried. Antibiotic cream was applied to the incision. A Mera wrap was applied followed by a Coban dressing. Xeroform gauze had been used to cover antibiotic ointment. He tolerated the procedure well and was extubated in the room and transferred in stable condition to the recovery area. Pathology: Foreskin Drains: none
[2025-02-20 11:55] VITALS: BP 126/70; PULSE 67; RESP 16; TEMP 36.4; O2SAT 99
[2025-02-20 12:00] VITALS: BP 136/60; PULSE 69; RESP 16; O2SAT 97
[2025-02-20 12:05] VITALS: BP 134/52; PULSE 66; RESP 16; O2SAT 95
[2025-02-20 12:13] VITALS: BP 130/58; PULSE 66; RESP 16; TEMP 36.1; O2SAT 94
== END 2025-02-20 13:02 | disposition home or self-care (01) ==
PROVIDERS: Visit Provider Urology
PROC: (CPT 54161; principal; 2025-02-20 10:40)
DX: N47.1 Phimosis (principal); N48.1 Balanitis; C61 Malignant neoplasm of prostate; Z92.3 Personal history of irradiation; R39.15 Urgency of urination; R35.0 Frequency of micturition; N52.9 Male erectile dysfunction, unspecified; I10 Essential (primary) hypertension; E11.9 Type 2 diabetes mellitus without complications; Z79.84 Long term (current) use of oral hypoglycemic drugs; Z79.899 Other long term (current) drug therapy; Z88.8 Allergy status to other drugs, medicaments and biological substances
CPT/HCPCS: 54161; 82947; 88304; J0690; J2003; J2704; J2795; J3010

== ENCOUNTER → 2025-02-20 08:28 | Outpatient (BNV) | payer MEDICARE, SELFPAY | PROVIDERS: Visit Provider Urology | DX: N48.1 Balanitis (principal); N47.1 Phimosis | CPT/HCPCS: 54161 ==

== ENCOUNTER 2025-03-22 10:27 | Outpatient (AMB) | payer MEDICARE, SELFPAY ==
--- OUTSIDE RECORDS SUMMARY | 2025-02-28 05:15 | XMS_ITS ---
Author Organization [facility] [address] Address [address] [place] [address] Care Team Providers Care Data Visualization Developer Name Role Phone HELENE MARLOW Unavailable [phone] PRETTY MILES Unavailable [phone] REASON FOR VISIT MAWV, HGB A1C IN OFFICE Medications Medication SIG (Take, Route, Frequency, Duration) Notes Start Date End Date Status metFORMIN HCl 1000 MG TAKE 1 TABLET BY M OUTH TWICE DAILY; Duration: 30 Active Jardiance 25 MG 1 tablet Orally Once a day; Duration: 90 days Active Jardiance 25 MG TAKE 1 TABLET BY JAVIER TH EVERY DAY 30; Duration: 30 Active amLODIPine Besylate 10 MG 1 tablet Orall y Once a day; Duration: 90 days Active Allopurinol 300 MG 1 tablet Orally Once a day; Duration: 90 days Active Atorvastatin Calcium 40 MG 1 tablet Oral ly Once a day; Duration: 90 days Active Carvedilol 12.5 MG TAKE 1 TABLET TWICE DAILY WITH FOOD; Duration: 90 Active metFORMIN HCl 1000 MG 1 tablet with a me al Orally twice a day; Duration: 90 days Active Encounters Encounter Location Date Provider Diagnosis [facility] [address] [address] 02/28/2025 PRETTY MILES Essential (primary) hypertension I10 ; Type 2 diabetes mellitus without complication, without long-term current use of insulin E11.9 ; Hyperlipidemia, unspecified E78.5 ; Hypothyroidism, unspecified type E03.9 ; Sinus bradycardia R00.1 ; LBBB (left bundle branch block) I44.7 and Colon cancer screening Z12.11 Assessments Encounter Date Diagnosis (ICD Code) Assessment Notes Treatment Notes Treatment Clinical Notes Section Notes 02/28/2025 Essential (primary) hypertension (ICD-10 - I10) Acute Concerns/Problem List: 02/28/2025 Lets refer back to cardiology He is [...] software and direct typing Please excuse inadvertent contact lens assistant or typing errors, or uncorrected word substitutions Although every attempt has been made by the provider to proofread this document, occasional misspellings and typographical errors may still be present Due to the previous pandemic, and the use of personal protective equipment (PPE) This may decrease voice recognition accuracy Inadvertent contact lens assistant errors may occur 02/28/2025 Type 2 diabetes mellitus without complication, without long-term current use of insulin (ICD-10 - E11.9) Acute Concerns/Problem List: 02/28/2025 Lets refer back to cardiology He is [...] software and direct typing Please excuse inadvertent contact lens assistant or typing errors, or uncorrected word substitutions Although every attempt has been made by the provider to proofread this document, occasional misspellings and typographical errors may still be present Due to the previous pandemic, and the use of personal protective equipment (PPE) This may decrease voice recognition accuracy Inadvertent contact lens assistant errors may occur 02/28/2025 Hyperlipidemia, unspecified (ICD-10 - E78.5) Acute Concerns/Problem List: 02/28/2025 Lets refer back to cardiology He is [...] software and direct typing Please excuse inadvertent contact lens assistant or typing errors, or uncorrected word substitutions Although every attempt has been made by the provider to proofread this document, occasional misspellings and typographical errors may still be present Due to the previous pandemic, and the use of personal protective equipment (PPE) This may decrease voice recognition accuracy Inadvertent contact lens assistant errors may occur 02/28/2025 Hypothyroidism, unspecified type (ICD-10 - E03.9) Acute Concerns/Problem List: 02/28/2025 Lets refer back to cardiology He is [...] software and direct typing Please excuse inadvertent contact lens assistant or typing errors, or uncorrected word substitutions Although every attempt has been made by the provider to proofread this document, occasional misspellings and typographical errors may still be present Due to the previous pandemic, and the use of personal protective equipment (PPE) This may decrease voice recognition accuracy Inadvertent contact lens assistant errors may occur 02/28/2025 Sinus bradycardia (ICD-10 - R00.1) Acute Concerns/Problem List: 02/28/2025 Lets refer back to cardiology He is [...] software and direct typing Please excuse inadvertent contact lens assistant or typing errors, or uncorrected word substitutions Although every attempt has been made by the provider to proofread this document, occasional misspellings and typographical errors may still be present Due to the previous pandemic, and the use of personal protective equipment (PPE) This may decrease voice recognition accuracy Inadvertent contact lens assistant errors may occur 02/28/2025 LBBB (left bundle branch block) (ICD-10 - I44.7) Acute Concerns/Problem List: 02/28/2025 Lets refer back to cardiology He is [...] software and direct typing Please excuse inadvertent contact lens assistant or typing errors, or uncorrected word substitutions Although every attempt has been made by the provider to proofread this document, occasional misspellings and typographical errors may still be present Due to the previous pandemic, and the use of personal protective equipment (PPE) This may decrease voice recognition accuracy Inadvertent contact lens assistant errors may occur 02/28/2025 Colon cancer screening (ICD-10 - Z12.11) Acute Concerns/Problem List: 02/28/2025 Lets refer back to cardiology He is [...] software and direct typing Please excuse inadvertent contact lens assistant or typing errors, or uncorrected word substitutions Although every attempt has been made by the provider to proofread this document, occasional misspellings and typographical errors may still be present Due to the previous pandemic, and the use of personal protective equipment (PPE) This may decrease voice recognition accuracy Inadvertent contact lens assistant errors may occur Plan Of Treatment Medication Medication Name Sig Start Date Stop Date Notes Jardiance 25 MG 1 tablet Orally Once a day; Duration: 90 days amLODIPine Besylate 10 MG 1 tablet Orall y Once a day; Duration: 90 days Allopurinol 300 MG 1 tablet Orally Once a day; Duration: 90 days Atorvastatin Calcium 40 MG 1 tablet Oral ly Once a day; Duration: 90 days Carvedilol 12.5 MG TAKE 1 TABLET TWICE DAILY WITH FOOD; Duration: 90 metFORMIN HCl 1000 MG 1 tablet with a me al Orally twice a day; Duration: 90 days Next Appt Details Provider Name:PRETTY MILES, 04/21/2025 10:45:00 AM, [address] [facility], [facility] [address], [place], [address], Progress Notes * MARQUITA CAMEJO MDOB:1950 (75 yo M)Acc No.[id number]:02/28/2025 Progress Note Patient: MARQUITA STAFFORD Provider: Chris MILES NP :1950 A ge:75 Y S ex:Male Date:02/28/2025 Address:[address] [place] [address], [id number] Subjective: * Chief Complaints: * 1 . MAWV, HGB A1C IN OFFICE. * HPI: C onstitutional: Patient is here for a Medicare Wellness Visit (MTWV) Complete paperwork was reviewed and updated and has been filed and scan. Age appropriate screening measures reviewed Depression screen completed. PHQ-9: Alcohol audit screening completed. AUDIT: Cognition assessed MMSE/MOCA: Fall risk assessed Obesity screen completed. C ardiovascular risk stratification screen completed. Discussed healthcare proxy. Discussed [place] order for life sustaining treatment, Comprehensive fasting labs reviewed Patient seen and examined. F ull past medical history, social history, family history, allergies and current medications were reviewed and updated. Acute Concerns/Problem List: 02/24/2025 He has not seen cardiology yet He could benefit from a 30 Day Loop recorder He has a history of bradycardia and left bundle chad block in the past was hospitalized from June 23 until June 25, 2024 @[facility] DX Acute encephalopathy of unclear etiology, sinus bradycardia, hypothermia Apparently the patient was found down on the floor at around 4 AM in his bedroom He was encephalopathic His blood work was fairly unremarkable A1c was 7.8 TSH was normal Imaging of the brain including CT brain, neck angiography MRI of the brain unremarkable He was found to have some sinus bradycardia They held his Coreg Lyme antibodies were negative He is home PT services in place DM Regimen which includes SGLT2-Jardiance/metformin BID has been compliant with it Denies any recent chest pain, SOB, pain of any kind, and states I feel well to return to work Other history includes diabetes, hypertension, prostate cancer, status post prostatectomy [address] Valente and radiation treatment with Dr. Holloway, gout previous hx of prostatectomy 2007, cancer, urologist @ [facility]. 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 Covid x 4 MRNA - plans to get booster this year before Mar. Flu 2023: yes, [facility] pharmacy ~ Shingrix: no previous, states insurance would not cover Prevnar/Pneumovax: 2 years ago RSV, we did disc new updated guidelines, may get at pharmacy Cscope: last in 2014 with [facility], negative- due in 2024 recommended 10 yrs*. * ROS: R eview of systems otherwise negative unless stated in HPI. * Medical History: * Medications: T aking Jardiance 25 MG Tablet TAKE 1 TABLET BY MOUTH EVERY DAY 30 , Taking metFORMIN HCl 1000 MG Tablet TAKE 1 TABLET BY MOUTH TWICE DAILY , Taking Allopurinol 300 MG Tablet 1 tablet Orally Once a day , Taking Jardiance 25 MG Tablet 1 tablet Orally Once a day , Taking Carvedilol 12.5 MG Tablet TAKE 1 TABLET TWICE DAILY WITH FOOD , Taking Atorvastatin Calcium 40 MG Tablet 1 tablet Orally Once a day , Taking metFORMIN HCl 1000 MG Tablet 1 tablet with a meal Orally twice a day , Taking amLODIPine Besylate 10 MG Tablet 1 tablet Orally Once a day Objective: * Vitals: * Examination: G eneral Examination: GENERAL APPEARANCE: i n no acute distress, well developed, well nourished. H EAD: n ormocephalic, atraumatic. E YES: p upils equal, round, reactive to light and accommodation. E ARS: n ormal. O RAL CAVITY: m ucosa moist. T HROAT: c lear. N CLARISSA/THYROID: n clarissa supple, full range of motion, no cervical lymphadenopathy. S KIN: n o suspicious lesions, warm and dry. H EART: n o murmurs, regular rate and rhythm, S1, S2 normal. L UNGS: c lear to auscultation bilaterally. A BDOMEN: n ormal, bowel sounds present, soft, nontender, nondistended. E XTREMITIES: n o clubbing, cyanosis, or edema. N EUROLOGIC: n onfocal, motor strength normal upper and lower extremities, sensory exam intact. Assessment: * Assessment: 1. E ssential (primary) hypertension - I10 (Primary) 2 . T ype 2 diabetes mellitus without complication, without long-term current use of insulin - E11.9 3 .?Hyperlipidemia, unspecified - E78.5 4 . H ypothyroidism, unspecified type - E03.9 5 . S inus bradycardia - R00.1 6 . L BBB (left bundle branch block) - I44.7 7 . C olon cancer screening - Z12.11 Acute Concerns/Problem List: 02/28/2025 Lets refer back to cardiology He is [...] software and direct typing Please excuse inadvertent contact lens assistant or typing errors, or uncorrected word substitutions Although every attempt has been made by the provider to proofread this document, occasional misspellings and typographical errors may still be present Due to the previous pandemic, and the use of personal protective equipment (PPE) This may decrease voice recognition accuracy Inadvertent contact lens assistant errors may occur Plan: * Treatment: * Images: Billing Information: * Visit Code: * Procedure Codes: Care Plan Details* * Electronic signature of CLARIBEL IMLES on 03/22/2025 at 12:10 PM EST Sign off status: Pending * Provider: Chris MILES NP Date: Generated for Jenna sánchez/Nannette/Mary Ellen on: 05/22/2024 12:10 PM EST History and Physical Notes * HPI (History of Present Illness) Category Sub-Category Detail Notes Category Not es Constitutional Patient is here for a Medicare Wellness Visit (MAWV) Complete paperwork was reviewed and updated and has been filed and scan. Age appropriate screening measures reviewed Depression screen completed. PHQ-9: Alcohol audit screening completed. AUDIT: Cognition assessed MMSE/MOCA: Fall risk assessed Obesity screen completed. Cardiovascular risk stratification screen completed. Discussed healthcare proxy. Discussed [place] order for life sustaining treatment, Comprehensive fasting labs reviewed Patient seen and examined. Full past medical history, social history, family history, allergies and current medications were reviewed and updated. Acute Concerns/Problem List: 02/24/2025 He has not seen cardiology yet He could benefit from a 30 Day Loop recorder He has a history of bradycardia and left bundle chad block in the past was hospitalized from June 23 until June 25, 2024 @[facility] DX Acute encephalopathy of unclear etiology, sinus bradycardia, hypothermia Apparently the patient was found down on the floor at around 4 AM in his bedroom He was encephalopathic His blood work was fairly unremarkable A1c was 7.8 TSH was normal Imaging of the brain including CT brain, neck angiography MRI of the brain unremarkable He was found to have some sinus bradycardia They held his Coreg Lyme antibodies were negative He is home PT services in place DM Regimen which includes SGLT2-Jardiance/metformin BID has been compliant with it Denies any recent chest pain, SOB, pain of any kind, and states I feel well to return to work Other history includes diabetes, hypertension, prostate cancer, status post prostatectomy [address] Valente and radiation treatment with Dr. Holloway, gout previous hx of prostatectomy 2007, cancer, urologist @ [facility]. 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 Covid x 4 MRNA - plans to get booster this year before Mar. Flu 2023: yes, [facility] pharmacy ~ Shingrix: no previous, states insurance would not cover Prevnar/Pneumovax: 2 years ago RSV, we did disc new updated guidelines, may get at pharmacy Cscope: last in 2014 with [facility], negative- due in 2024 recommended 10 yrs* Examination Category Sub-Category Detail Notes Category Not es General Examination GENERAL APPEARANCE: in no ac nagi distress, well developed, well nourished HEAD: normocephalic, atrau matic EYES: pupils equal, round, reactive to light and accommodation EARS: normal THROAT: clear NECK/THYROID: neck supple, full ra nge of motion, no cervical lymphadenopathy HEART: no murmurs, regular rate and rhythm, S1, S2 normal LUNGS: clear to auscultatio n bilaterally ABDOMEN: normal, bowel sounds present, soft, nontender, nondistended NEUROLOGIC: nonfocal, motor stre ngth normal upper and lower extremities, sensory exam intact SKIN: no suspicious lesion s, warm and dry EXTREMITIES: no clubbing, cyanosi s, or edema ORAL CAVITY: mucosa moist
--- NOTE | 2025-03-22 10:40 | MHC.OFFVIS ---
Intake Visit Reasons: Circumcision f/u Intake Note: Patient is present for Circumcision Urology Med: None Antibiotic Allergy: None Blood Thinner: None Director Of Vendor Management Required: No Accompanied by: Self / Same As Patient Allergies meperidine (Demerol) Allergy (Unknown, Verified 03/22/25 10:44) Unknown HPI Comments Details: Ajay is a very pleasant male. He is a patient of Dr Noonan. He is seen for the following urologic conditions - prostate cancer with delayed failure and salvage radiation - erectile dysfunction - phimosis Follow-up for phimosis Circumcision performed Healing well Recommend Aquaphor Did have blood in on stool sample at last test Maybe secondary to radiation proctitis Three-month follow-up check PSA Prostate cancer: Diagnosed April 2007, Luisa 3 + 3 initial therapy radical prostatectomy, EXBRT 2016 Prostate cancer was diagnosed 04/2007. PSA 5.9. The Luisa grade is 3+3. TNM Classification of Malignant Tumours (TNM) pT1c- N0. The D'Winsome (NCCN) risk category is Low Risk (PSA< 10, Gl < 7, T1c). Initial therapy included Primary treatment, radical prostatectomy 06/25, VIU 05/28 Additional treatment - rising PSA 04/02 , External Beam Radiation, [facility] 6700Gy, 37 fractions Recent labs included a PSA (prostate-specific antigen) 10/30 0.2, 07/31 0.2, 10/31 0.4, 01/31 0.4 12/01 < 0.1, 06/04 < 0.1, 12/02 < 0.1, 07/06 < 0.1, 12/03 < 0.1, 07/07 < 0.1 - 08/05 <0.1, 02/05 <0.1, 08/06 <0.1, 02/06 <0.1, 08/07 <0.1, 08/09 0.13, 12/09 0.17 Associated conditions erectile dysfunction Yes Therapeutic plan: Continue with surveillance - every 6 months since failure to control Erectile dysfunction Secondary to treatment for prostate cancer Good response to sildenafil 100 mg 2020 Phimosis Circumcision 02/09 PFSH Medical History Diabetes mellitus Arthritis HTN (hypertension) Urgency-frequency syndrome Erectile dysfunction Urethral stricture Prostate cancer Erectile dysfunction Surgical History History of prostate surgery Social History Are you a primary body care manager to a significant other at home: No Do you presently have visiting nurse or other home services: No Patient Tobacco Use Status: Never used Tobacco Review of Systems Const Denies chills and Denies fever(s) Card Reports no additional complaints and Denies syncope Resp Denies cough GI Denies abdominal pain and Denies heartburn Reports as per HPI and Denies change in libido Neuro Denies syncope Psych Denies change in libido Endo Denies change in libido Physical Exam Const General: cooperative, healthy appearing, comfortable and no acute distress Orientation/consciousness: patient oriented x3 HEENT Face and sinus: Yes normal facial exam Mouth: moist mucous membranes Neck Neck: Yes normal visual inspection, Yes full ROM and Yes trachea midline Chest Chest palpation & inspection: normal inspection of the chest Resp Effort & Inspection: normal respiratory effort, able to speak in complete sentences and no respiratory distress GI Inspection: Yes normal to inspection Back/Spine/Pelvis Cervical Spine: normal cervical lordosis Thoracic/Lumbar Spine: thoracic and lumbar spine normal to inspection Skin General skin exam: no rashes or lesions noted Neuro General: patient oriented x3, gait normal, tone normal and moves all extremities Extrem General: Yes normal to inspection and Yes capillary refill normal Assessment & Plan Assessment & Plan (1) Phimosis: Code(s): N47.1 - Phimosis Category: Medical Plan Three-month follow-up check PSA Orders: Orders Prostate Specific Antigen 3 Months C61 - Malignant neoplasm of prostate Patient Instructions: This note is constructed using voice recognition software. While every effort has been made to ensure accuracy joint machine operator errors may have been included. Imaging studies, laboratory and physical exam results were discussed and reviewed in detail. No major barriers to patient understanding were identified. An opportunity to ask questions regarding the treatment plan was provided. All questions were answered. The patient expressed understanding and agreement with the above treatment plan. The patient is aware they should contact our office by phone for worsening of their current condition or the appearance of new urologic symptoms. Compliance is encouraged with any medications and followup testing that is ordered. It is a privilege to participate in the urologic care of your patient. If you have any questions or concerns regarding treatment for the above conditions, or other urologic issues, please do not hesitate to contact me. The office telephone contact is [phone]. Sincerely, Dr Ten Valente MD, [facility] - Urology Compassionate Specialist Care for the Genitourinary System Coding Level of Care Code Est Pt Level 3 (84889) Complex EM visit Add On G2211 Diagnoses Phimosis N47.1
--- OUTSIDE RECORDS SUMMARY | 2025-03-22 12:11 | XMS_ITS | Clinical Summary ---
Author Organization [facility] Address [address] [place] [address] Care Team Providers Care Welder Plasma Arc Name Role Phone Xin Bowman MD Primary Care Provider [phone] Allergies No known active allergies Medications Medication [...] age to complete this topic Care Teams Welder Plasma Arc Relationship Specialty Start Date End Date Xin Bowman MD [facility] [address] [address] PCP - General Internal Medicine 08/03/20
--- OUTSIDE RECORDS SUMMARY | 2025-03-22 12:11 | XMS_ITS | Clinical Summary ---
Author Organization [facility] Address [address] [place] [address] Phone Care Team Providers Care Flat Bed Knitter Name Role Phone Mikey Noonan MD Primary Care Provider [phone] Allergies No known active allergies Medications amLODIPine [...] Type Department Care Team Description 01/13/2025 Telephone [facility] Cardiology [facility] [address] [place] [address] Jonatan Martinez, QUARTZ MINER from Last 3 Months Medical History Medical [...] Health Maintenance Due Date Last Done Comments Colorectal Cancer Screening: Colonoscopy 1951 Diabetes: Annual Foot Exam 1961 Diabetes: Annual Retina Eye Exam 1961 DTaP,Tdap,and Td Vaccines (1 - Tdap) 1970 RSV Immunization Adult Patients (1 - Risk 50-74 years 1-dose series) 2001 Zoster Vaccines (1 of 2) 2001 Hepatitis C Screening 04/20/2022 Medicare Annual Wellness [...] with reflex microscopic (01/12/2025 8:22 AM EDT) [facility] Signature Specific [place] Urine 1.035(H) 1.003 - 1.030 LAB URINALYSIS - AUTOMATED METHOD 01/12/2025 10:17 AM EDT [facility] pH, Urine 6.5 5.0 - 8.0 pH LAB URINALYSIS - AUTOMATED METHOD 01/12/2025 10:17 AM [facility] Leukocytes, Urine Trace(A) Negative LAB URINALYSIS - AUTOMATED METHOD 01/12/2025 10:17 AM [facility] Nitrite, Urine Negative Negative LAB URINALYSIS - AUTOMATED METHOD 01/12/2025 10:17 AM [facility] Protein, Urine Negative <=Trace mg/dL LAB URINALYSIS - AUTOMATED METHOD 01/12/2025 10:17 AM [facility] Glucose, Urine >=1000(A) Negative mg/dL LAB URINALYSIS - AUTOMATED METHOD 01/12/2025 10:17 AM [facility] Ketones, Urine Negative Negative mg/dL LAB URINALYSIS - AUTOMATED METHOD 01/12/2025 10:17 AM [facility] Urobilinogen, Urine 1.0 0.2 - 1.0 mg/dL LAB URINALYSIS - AUTOMATED METHOD 01/12/2025 10:17 AM [facility] Bilirubin, Urine Negative Negative LAB URINALYSIS - AUTOMATED METHOD 01/12/2025 10:17 AM [facility] Blood, Urine Negative Negative LAB URINALYSIS - AUTOMATED METHOD 01/12/2025 10:17 AM [facility] RBC, Urine 1.4 0 - 4 /HPF LAB URINALYSIS - AUTOMATED METHOD 01/12/2025 10:17 AM [facility] WBC, Urine 14.7(H) 0 - 4 /HPF LAB URINALYSIS - AUTOMATED METHOD 01/12/2025 10:17 AM [facility] Squamous Epithelial, Urine 26 0 - 60 /LPF LAB URINALYSIS - AUTOMATED METHOD 01/12/2025 10:17 AM [facility] Bacteria, Urine Negative Negative /HPF LAB URINALYSIS - AUTOMATED METHOD 01/12/2025 10:17 AM [facility] Hyaline Casts, Urine 0.0 0 - 3 /LPF LAB URINALYSIS - AUTOMATED METHOD 01/12/2025 10:17 AM EDT [facility] Yeast, Urine Present(A) None /HPF 01/12/2025 10:17 AM EDT [facility] Comment:This is an appended report. These results have been appended to a previously final verified report. Urine Urine specimen obtained by clean catch procedure / Unknown Non-blood Collection / Unknown 01/12/2025 8:22 AM EDT 01/12/2025 9:28 AM EDT Jonatan Martinez NP LAB URINE ORDERABLES Edited R esult - Final Performing Organization Address [facility]/ZIP Co de Phone Number [facility] [address] [place] [address], [place] [phone] * Thyroid stimulating hormone with reflex to free t4 and free t3 (01/12/2025 8:22 AM EDT) TSH 1.77 0.40 - 4.00 mcIU/mL LAB CHEMISTRY METHOD 01/12/2025 10:50 AM EDT [facility] Blood Venous blood specimen / Unknown Venipuncture / Unknown 01/12/2025 8:22 AM EDT 01/12/2025 9:27 AM EDT Jonatan Martinez NP LAB BLOOD ORDERABLES Final Re sult [facility] [address] [place] [address], [place] [phone] * Lipid panel with reflex to direct LDL (01/12/2025 8:22 AM EDT) Cholesterol 126 0 - 200 mg/dL LAB CHEMISTRY METHOD 01/12/2025 10:13 AM EDT [facility] Triglycerides 71 0 - 150 mg/dL LAB CHEMISTRY METHOD 01/12/2025 10:13 AM EDT [facility] HDL 54 >=40 mg/dL LAB CHEMISTRY METHOD 01/12/2025 10:13 AM EDT [facility] LDL Calculated 58 0 - 100 mg/dL LAB CHEMISTRY METHOD 01/12/2025 10:13 AM EDT [facility] Comment:Estimated LDL Calcul ated using equation: Total cholesterol - HDL cholesterol - (Triglycerides/5) VLDL Cholesterol Sheldon 14.2 mg/dL LAB CHEMISTRY METHOD 01/12/2025 10:13 AM EDT [facility] Non HDL Chol. (LDL+VLDL) 72 <145 mg/dL LAB CHEMISTRY METHOD 01/12/2025 10:13 AM EDT [facility] Chol/HDL Ratio 2.3 0.0 - 4.4 LAB CHEMISTRY METHOD 01/12/2025 10:13 AM EDT [facility] Blood Venous blood specimen / Unknown Venipuncture / Unknown 01/12/2025 8:22 AM EDT 01/12/2025 9:27 AM EDT us Jonatan Martinez QUARTZ MINER LAB BLOOD ORDERABLES Final Re sult [facility] [address] [place] [address], * (ABNORMAL) CBC auto differential (01/12/2025 8:22 AM EDT) WBC 5.3 4.8 - 10.8 K/mcL LAB HEMETOLOGY METHOD 01/12/2025 9:33 AM EDT [facility] RBC 5.10 4.50 - 5.50 M/mcL LAB HEMETOLOGY METHOD 01/12/2025 9:33 AM EDT [facility] Hemoglobin 15.6 13.5 - 17.5 g/dL LAB HEMETOLOGY METHOD 01/12/2025 9:33 AM EDT [facility] Hematocrit 46.7 42.0 - 54.0 % LAB HEMETOLOGY METHOD 01/12/2025 9:33 AM [facility] MCV 92.1 79.0 - 98.0 FL LAB HEMETOLOGY METHOD 01/12/2025 9:33 AM [facility] MCH 30.8 27.0 - 32.0 pcg LAB HEMETOLOGY METHOD 01/12/2025 9:33 AM [facility] MCHC 33.4 32.0 - 37.0 g/dL LAB HEMETOLOGY METHOD 01/12/2025 9:33 AM [facility] RDW 13.2 11.0 - 15.0 % LAB HEMETOLOGY METHOD 01/12/2025 9:33 AM [facility] Platelets 191 130 - 400 K/mcL LAB HEMETOLOGY METHOD 01/12/2025 9:33 AM [facility] MPV 9.6 7.0 - 11.0 FL LAB HEMETOLOGY METHOD 01/12/2025 9:33 AM [facility] NRBC 0.0 <1.0 % LAB HEMETOLOGY METHOD 01/12/2025 9:33 AM [facility] NRBC Absolute 0.00 <0.10 K/mcL LAB HEMETOLOGY METHOD 01/12/2025 9:33 AM [facility] Neutrophils Relative 67.3 % LAB HEMETOLOGY METHOD 01/12/2025 9:33 AM [facility] Lymphocytes Relative 18.2 % LAB HEMETOLOGY METHOD 01/12/2025 9:33 AM [facility] Monocytes Relative 11.1 % LAB HEMETOLOGY METHOD 01/12/2025 9:33 AM [facility] Eosinophils Relative 2.4 % LAB HEMETOLOGY METHOD 01/12/2025 9:33 AM EDT [facility] Basophils Relative 0.6 % LAB HEMETOLOGY METHOD 01/12/2025 9:33 AM EDT [facility] Immature Granulocytes Relative 0.4 % LAB HEMETOLOGY METHOD 01/12/2025 9:33 AM EDT [facility] Neutrophils Absolute 3.58 1.50 - 7.00 K/mcL LAB HEMETOLOGY METHOD 01/12/2025 9:33 AM EDT [facility] Lymphocytes Absolute 0.97(L) 1.00 - 5.00 K/mcL LAB HEMETOLOGY METHOD 01/12/2025 9:33 AM EDT [facility] Monocytes Absolute 0.59 0.20 - 1.00 K/mcL LAB HEMETOLOGY METHOD 01/12/2025 9:33 AM EDT [facility] Eosinophils Absolute 0.13 0.00 - 0.50 K/mcL LAB HEMETOLOGY METHOD 01/12/2025 9:33 AM EDT [facility] Basophils Absolute 0.03 0.00 - 0.20 K/mcL LAB HEMETOLOGY METHOD 01/12/2025 9:33 AM EDT [facility] Immature Granulocytes Absolute 0.02 0.00 - 0.03 K/mcL LAB HEMETOLOGY METHOD 01/12/2025 9:33 AM EDT [facility] Blood Venous blood specimen / Unknown Venipuncture / Unknown 01/12/2025 8:22 AM EDT 01/12/2025 9:27 AM EDT us Jonatan Martinez NP LAB BLOOD ORDERABLES Final Re sult [facility] [address] [place] [address], * Vitamin D 25 hydroxy (01/12/2025 8:22 AM EDT) Vit D, 25-Hydroxy 33.8 30.0 - 80.0 ng/mL LAB CHEMISTRY METHOD 01/12/2025 10:50 AM EDT [facility] Blood Venous blood specimen / Unknown Venipuncture / Unknown 01/12/2025 8:22 AM EDT 01/12/2025 9:27 AM EDT Jonatan Martinez QUARTZ MINER LAB BLOOD ORDERABLES Final Re sult Performing Organization Address [facility] de Phone Number [facility] [address] [place] [address], [place] [phone] * (ABNORMAL) Hemoglobin A1c (01/12/2025 8:22 AM EDT) [facility] Hemoglobin A1C 7.2(H) <6.5 % LAB CHEMISTRY METHOD 01/12/2025 10:35 AM EDT [facility] Mean Bld Glu Estim. 160 mg/dL LAB CHEMISTRY METHOD 01/12/2025 10:35 AM EDT [facility] Blood Venous blood specimen / Unknown Venipuncture / Unknown 01/12/2025 8:22 AM EDT 01/12/2025 9:27 AM EDT Jonatan Martinez QUARTZ MINER LAB BLOOD ORDERABLES Final Re sult Performing Organization Address [facility]/ZIP Co de Phone Number [facility] [address] [place] [address], [place] [phone] * (ABNORMAL) Comprehensive metabolic panel (01/12/2025 8:22 AM EDT) [facility] Sodium 141 133 - 145 mmol/L LAB CHEMISTRY METHOD 01/12/2025 10:13 AM EDT [facility] Potassium 4.7 3.5 - 5.5 mmol/L LAB CHEMISTRY METHOD 01/12/2025 10:13 AM EDT [facility] Chloride 106 96 - 110 mmol/L LAB CHEMISTRY METHOD 01/12/2025 10:13 AM [facility] CO2 30 21 - 32 mmol/L LAB CHEMISTRY METHOD 01/12/2025 10:13 AM [facility] Anion Gap 5 3 - 11 LAB CHEMISTRY METHOD 01/12/2025 10:13 AM [facility] Glucose 121(H) 70 - 100 mg/dL LAB CHEMISTRY METHOD 01/12/2025 10:13 AM [facility] BUN 17 5 - 25 mg/dL LAB CHEMISTRY METHOD 01/12/2025 10:13 AM [facility] Creatinine 1.07 0.70 - 1.30 mg/dL LAB CHEMISTRY METHOD 01/12/2025 10:13 AM [facility] eGFR 73 >=60 mL/min/1. 73m2 LAB CHEMISTRY METHOD 01/12/2025 10:13 AM [facility] Comment:Calculation based on the Chronic Kidney Disease Epidemiology Collaboration (CKD-EPI) equation refit without adjustment for race. BUN/Creatinine Ratio 15.9 LAB CHEMISTRY METHOD 01/12/2025 10:13 AM [facility] Calcium 8.8 8.5 - 10.5 mg/dL LAB CHEMISTRY METHOD 01/12/2025 10:13 AM [facility] AST (SGOT) 19 10 - 42 unit/L LAB CHEMISTRY METHOD 01/12/2025 10:13 AM [facility] ALT (SGPT) 29 10 - 60 unit/L LAB CHEMISTRY METHOD 01/12/2025 10:13 AM [facility] Alkaline Phosphatase 93 42 - 121 unit/L LAB CHEMISTRY METHOD 01/12/2025 10:13 AM [facility] Total Protein 7.2 6.0 - 8.0 g/dL LAB CHEMISTRY METHOD 01/12/2025 10:13 AM [facility] Albumin 3.9 3.2 - 5.0 g/dL LAB CHEMISTRY METHOD 01/12/2025 10:13 AM EDT [facility] Total Bilirubin 0.5 0.0 - 1.4 mg/dL LAB CHEMISTRY METHOD 01/12/2025 10:13 AM EDT [facility] Blood Venous blood specimen / Unknown Venipuncture / Unknown 01/12/2025 8:22 AM EDT 01/12/2025 9:27 AM EDT us Jonatan Martinez QUARTZ MINER LAB BLOOD ORDERABLES Final Re sult [facility] ([facility] [address] [place] [address], from Last 3 Months Insurance [facility] [employer] MEDICARE Advance Directives * Full [...] currently active code status orders. Care Teams Flat Bed Knitter Relationship Specialty Start Date End Date Mikey Noonan MD [address] [place] [phone] PCP - General Internal Medicine 08/02/21
--- OUTSIDE RECORDS SUMMARY | 2025-03-22 12:11 | XMS_ITS | Patient Health Record ---
Author Organization [facility] [address] Address [address] [place] [address] Care Team Providers Care Monitor Worker Name Role Phone HELENE MARLOW Unavailable [phone] LIBBYPRETTY HERNANDEZ Unavailable [phone] Allergies No Known Allergies Results Component Value [...] developed and the performance characteristics determined by [facility]. This confirmation testing has not been cleared or approved by the FDA. The laboratory is regulated under CLIA as qualified to perform high-complexity testing. This test is used for patient testing purposes. It should not be regarded as investigational or for research. Test performed at [facility], [address], [place] [address] Flory Hammer MD, PhD - [employer] URINALYSIS WITH REFLEX MICRO SCOPIC Reviewed date:01/17/2025 11:05:22 AM Interpretation: Performing Lab: Notes/Report: This is an appended report. These results have been appended to a previously final verified report. Specific [place] Urine 1.035 1.003-1.030 pH, Urine 6.5 5.0-8.0 pH Leukocytes, Urine Trace Negative Nitrite, Urine Negative Negative Protein, Urine Negative <=Trace mg/dL Glucose, Urine >=1000 Negative mg/dL Ketones, Urine Negative Negative mg/dL Urobilinogen, Urine 1.0 0.2-1.0 mg/dL Bilirubin, Urine Negative Negative Blood, Urine Negative Negative RBC, Urine 1.4 0-4 /HPF WBC, Urine 14.7 0-4 /HPF Squamous Epithelial, Urine 26 0-60 /LPF Bacteria, Urine Negative Negative /HPF Hyaline Casts, Urine 0.0 0-3 /LPF Yeast, Urine Present None /HPF URINALYSIS WITH REFLEX MICRO SCOPIC Reviewed date:01/17/2025 11:05:43 AM Interpretation: Performing Lab: Notes/Report: Specific [place] Urine 1.035 1.003-1.030 pH, Urine 6.5 5.0-8.0 pH Leukocytes, Urine Trace Negative Nitrite, Urine Negative Negative Protein, Urine Negative <=Trace mg/dL Glucose, Urine >=1000 Negative mg/dL Ketones, Urine Negative Negative mg/dL Urobilinogen, Urine 1.0 0.2-1.0 mg/dL Bilirubin, Urine Negative Negative Blood, Urine Negative Negative RBC, Urine 1.4 0-4 /HPF WBC, Urine 14.7 0-4 /HPF Squamous Epithelial, Urine 26 0-60 /LPF Bacteria, Urine Negative Negative /HPF Hyaline Casts, Urine 0.0 0-3 /LPF HEMOGLOBIN A1C Reviewed date:01/17/2025 11:05:22 AM Interpretation: Performing Lab: Notes/Report: Hemoglobin A1C 7.2 <6.5 % Mean Bld Glu Estim. 160 THYROID STIMULATING HORMONE WITH REFLEX TO FREE T4 AND FREE T3 Reviewed date:01/17/2025 11:05:22 AM Interpretation: Performing Lab: Notes/Report: TSH 1.77 0.40-4.00 mcIU/mL COMPREHENSIVE METABOLIC PANE L Reviewed date:01/17/2025 11:05:22 AM Interpretation: Performing Lab: Notes/Report: Sodium 141 133-145 mmol/L Potassium 4.7 3.5-5.5 mmol/L Chloride 106 96-110 mmol/L CO2 30 21-32 mmol/L Anion Gap 5 3-11 Glucose 121 70-100 mg/dL BUN 17 5-25 mg/dL Creatinine 1.07 0.70-1.30 mg/dL eGFR 73 >=60 mL/min/1.73m2 Calculati on based on the Chronic Kidney Disease Epidemiology Collaboration (CKD-EPI) equation refit without adjustment for race. BUN/Creatinine Ratio 15.9 Calcium 8.8 8.5-10.5 mg/dL AST (SGOT) 19 10-42 unit/L ALT (SGPT) 29 10-60 unit/L Alkaline Phosphatase 93 42-121 unit/L Total Protein 7.2 6.0-8.0 g/dL Albumin 3.9 3.2-5.0 g/dL Total Bilirubin 0.5 0.0-1.4 mg/dL VITAMIN D 25 HYDROXY Reviewed date:01/17/2025 11:05:22 AM Interpretation: Performing Lab: Notes/Report: Vit D, 25-Hydroxy 33.8 30.0-80.0 ng/mL LIPID PANEL WITH REFLEX TO D IRECT LDL Reviewed date:01/17/2025 11:05:22 AM Interpretation: Performing Lab: Notes/Report: Cholesterol 126 0-200 mg/dL Triglycerides 71 0-150 mg/dL HDL 54 >=40 mg/dL LDL Calculated 58 0-100 mg/dL Estimated LDL Calculated using equation: Total cholesterol - HDL cholesterol - (Triglycerides/5) VLDL Cholesterol Sheldon 14.2 Non HDL Chol. (LDL+VLDL) 72 <145 mg/dL Chol/HDL Ratio 2.3 0.0-4.4 CBC WITH AUTO DIFFERENTIAL Reviewed date:01/17/2025 11:05:43 AM Interpretation: Performing Lab: Notes/Report: WBC 5.3 4.8-10.8 K/mcL RBC 5.10 4.50-5.50 M/mcL Hemoglobin 15.6 13.5-17.5 g/dL Hematocrit 46.7 42.0-54.0 % MCV 92.1 79.0-98.0 FL MCH 30.8 27.0-32.0 pcg MCHC 33.4 32.0-37.0 g/dL RDW 13.2 11.0-15.0 % Platelets 191 130-400 K/mcL MPV 9.6 7.0-11.0 FL NRBC 0.0 <1.0 % NRBC Absolute 0.00 <0.10 K/mcL Neutrophils Relative 67.3 Lymphocytes Relative 18.2 Monocytes Relative 11.1 Eosinophils Relative 2.4 Basophils Relative 0.6 Immature Granulocytes Relative 0.4 Neutrophils Absolute 3.58 1.50-7.00 K/mcL Lymphocytes Absolute 0.97 1.00-5.00 K/mcL Monocytes Absolute 0.59 0.20-1.00 K/mcL Eosinophils Absolute 0.13 0.00-0.50 K/mcL Basophils Absolute 0.03 0.00-0.20 K/mcL Immature Granulocytes Absolute 0.02 0.00-0.03 K/mcL Reason For Referral Reason [facility] Diagnosis 1 Asymptomatic bradyca rdia (R00.1) Diagnosis 2 Block, bundle branch , left (I44.7) Referral Organization [facility] [address] Referring Provider First Name PRETTY Referring Provider Last Name GINGER Referring Provider Speciality Internal M edicine Referred Provider Specialty Cardiology General Notes Ilene Kennedy 02/2025 09:36:27 AM > Referral faxed to [phone] and pt given phone [phone]. Clinical Notes Cherise Restrepo 02:49:07 PM > refaxedLauro Redena 03/13/2025 01:36:13 PM > I called the office, and they informed me that they have reached out to the patient and are just waiting for a callback to schedule. Referral Priority Routine Medications Medication SIG (Take, Route, Frequency, Duration) Notes Start Date End Date Status Atorvastatin Calcium 40 MG 1 tablet Oral ly Once a day; Duration: 90 days Active metFORMIN HCl 1000 MG TAKE 1 TABLET BY M OUTH TWICE DAILY; Duration: 30 Active Jardiance 25 MG 1 tablet Orally Once a day; Duration: 90 days Active Jardiance 25 MG TAKE 1 TABLET BY JAVIER TH EVERY DAY 30; Duration: 30 Active Carvedilol 12.5 MG TAKE 1 TABLET TWICE DAILY WITH FOOD; Duration: 90 Active metFORMIN HCl 1000 MG 1 tablet with a me al Orally twice a day; Duration: 90 days Active amLODIPine Besylate 10 MG 1 tablet [...] Risk Notes Problem Malignant neoplasm of prostate (915896779) Malignant neoplasm of prostate (C61) Active confirmed Problem Hyperlipidemia (38152061) Hyperlipidemia, unspecified (E78.5) Active confirmed Problem Metabolic encephalopathy (48146863) Metabolic encephalopathy (G93.41) Active confirmed Problem Essential hypertension (11029829) Essential (primary) hypertension (I10) Active confirmed Problem Gout (72869360) Gout, unspecifie d (M10.9) Active confirmed Problem Adult health examination (857028436) Encounter for general adult medical examination without abnormal findings (Z00.00) Active confirmed Problem Lipid screening (297752515) Encounter for screening for lipoid disorders (Z13.220) Active confirmed Problem Colon cancer screening (149921497) Colon cancer screening (Z12.11) Active confirmed Problem Hyperlipidaemia (03331230) Hyperlipidemia, unspecified hyperlipidemia type (E78.5) Active confirmed Problem Adult health examination (808242837) Adult general medical exam (Z00.00) Active confirmed Problem Hypothyroidism (22320387) Hypothyroidism, unspecified type (E03.9) Active confirmed Problem Malignant tumor of prostate (139877427) Prostate cancer (C61) Active confirmed Problem Annual health maintenance examination (06141390) Annual physical exam (Z00.00) Active confirmed Problem Syncope and collapse (053461954) Syncope, unspecified syncope type (R55) Active confirmed Problem Vitamin D deficiency (95666727) Vitamin D deficiency (E55.9) Active confirmed Problem Diabetes mellitus screening (103660343) Diabetes mellitus screening (Z13.1) Active confirmed Problem Type II diabetes mellitus without complication (353765915) Type 2 diabetes mellitus without complication, without long-term current use of insulin (E11.9) Active confirmed Problem Hypoglycemia (032125655) Hypoglycemia (E16.2) Active confirmed Problem Avitaminosis D (73819793) Avitaminosis D (E55.9) Active confirmed Problem Endocrine/metaboli c screening (996751758) Encounter for screening for endocrine disorder (Z13.29) Active confirmed Problem Left bundle branch block (91944396) LBBB (left bundle branch block) (I44.7) Active confirmed Problem Asymptomatic bradycardia (8858130038) Asymptomatic bradycardia (R00.1) Active confirmed Problem Left bundle branch block (42873964) Block, bundle branch, left (I44.7) Active confirmed Vital Signs Heart Rate 64 /min 09/19/2024 Oximetry 98 % 09/19/2024 Blood pressure diastolic 76 mm Hg 09/19/2024 Height 65 in 09/19/2024 Blood pressure systolic 138 mm Hg 09/19/2024 Weight 168 lbs 09/19/2024 BMI 27.95 kg/m2 09/19/2024 Encounters Encounter Location Date Provider Diagnosis [facility] [address] 06/27/2024 PRETTY BORHOT Essential (primary) hypertension I10 ; Sinus bradycardia R00.1 ; Type 2 diabetes mellitus without complication, without long-term current use of insulin E11.9 ; Hyperlipidemia, unspecified E78.5 ; Hypothyroidism, unspecified type E03.9 and LBBB (left bundle branch block) I44.7 [facility] [address] 09/19/2024 PRETTY BORHOT Essential (primary) hypertension I10 ; Type 2 diabetes mellitus without complication, without long-term current use of insulin E11.9 ; Hyperlipidemia, unspecified E78.5 ; Hypothyroidism, unspecified type E03.9 ; Sinus bradycardia R00.1 ; LBBB (left bundle branch block) I44.7 and Colon cancer screening Z12.11 [facility] [address] 05/30/2024 PRETTY BORHOT Essential (primary) hypertension I10 [facility] [address] 06/27/2024 PRETTY BORHOT [facility] [address] 09/19/2024 PRETTY BORHOT [facility] [address] 09/20/2024 HELENE MARLOW [facility] [address] [place] [address] 10/31/2024 HELENE MARLOW [facility] [address] [facility] [address] [place] [address] 12/07/2024 PRETTY LIBBYHOT Essential (primary) hypertension I10 [facility] [address] [facility] [address] [place] [address] 02/13/2025 PRETTY BORHOT Essential (primary) hypertension I10 [facility] [address] [facility] [address] [place] [address] 02/28/2025 HELENE MARLOW [facility] [address] [place] [address] 02/28/2025 PRETTY MILES Assessments Encounter Date Diagnosis (ICD Code) Assessment Notes Treatment Notes Treatment Clinical Notes Section Notes 05/30/2024 Essential (primary) hypertension (ICD-10 - I10) [...] software and direct typing Please excuse inadvertent water pumping station engineer or typing errors, or uncorrected word substitutions Although every attempt has been made by the provider to proofread this document, occasional misspellings and typographical errors may still be present Due to the previous pandemic, and the use of personal protective equipment (PPE) This may decrease voice recognition accuracy Inadvertent water pumping station engineer errors may occur 06/27/2024 Sinus bradycardia (ICD-10 [...] software and direct typing Please excuse inadvertent water pumping station engineer or typing errors, or uncorrected word substitutions Although every attempt has been made by the provider to proofread this document, occasional misspellings and typographical errors may still be present Due to the previous pandemic, and the use of personal protective equipment (PPE) This may decrease voice recognition accuracy Inadvertent water pumping station engineer errors may occur 09/19/2024 Essential (primary) hypertension [...] software and direct typing Please excuse inadvertent water pumping station engineer or typing errors, or uncorrected word substitutions Although every attempt has been made by the provider to proofread this document, occasional misspellings and typographical errors may still be present Due to the previous pandemic, and the use of personal protective equipment (PPE) This may decrease voice recognition accuracy Inadvertent water pumping station engineer errors may occur 09/19/2024 Type 2 diabetes [...] software and direct typing Please excuse inadvertent water pumping station engineer or typing errors, or uncorrected word substitutions Although every attempt has been made by the provider to proofread this document, occasional misspellings and typographical errors may still be present Due to the previous pandemic, and the use of personal protective equipment (PPE) This may decrease voice recognition accuracy Inadvertent water pumping station engineer errors may occur 12/07/2024 Essential (primary) hypertension (ICD-10 - I10) 02/13/2025 Essential (primary) hypertension (ICD-10 - I10) 09/19/2024 [...] software and direct typing Please excuse inadvertent water pumping station engineer or typing errors, or uncorrected word substitutions Although every attempt has been made by the provider to proofread this document, occasional misspellings and typographical errors may still be present Due to the previous pandemic, and the use of personal protective equipment (PPE) This may decrease voice recognition accuracy Inadvertent water pumping station engineer errors may occur 06/27/2024 Type 2 diabetes [...] software and direct typing Please excuse inadvertent water pumping station engineer or typing errors, or uncorrected word substitutions Although every attempt has been made by the provider to proofread this document, occasional misspellings and typographical errors may still be present Due to the previous pandemic, and the use of personal protective equipment (PPE) This may decrease voice recognition accuracy Inadvertent water pumping station engineer errors may occur 06/27/2024 Hyperlipidemia, unspecified (ICD-10 [...] software and direct typing Please excuse inadvertent water pumping station engineer or typing errors, or uncorrected word substitutions Although every attempt has been made by the provider to proofread this document, occasional misspellings and typographical errors may still be present Due to the previous pandemic, and the use of personal protective equipment (PPE) This may decrease voice recognition accuracy Inadvertent water pumping station engineer errors may occur 09/19/2024 Hypothyroidism, unspecified type [...] software and direct typing Please excuse inadvertent water pumping station engineer or typing errors, or uncorrected word substitutions Although every attempt has been made by the provider to proofread this document, occasional misspellings and typographical errors may still be present Due to the previous pandemic, and the use of personal protective equipment (PPE) This may decrease voice recognition accuracy Inadvertent water pumping station engineer errors may occur 09/19/2024 Sinus bradycardia (ICD-10 [...] software and direct typing Please excuse inadvertent water pumping station engineer or typing errors, or uncorrected word substitutions Although every attempt has been made by the provider to proofread this document, occasional misspellings and typographical errors may still be present Due to the previous pandemic, and the use of personal protective equipment (PPE) This may decrease voice recognition accuracy Inadvertent water pumping station engineer errors may occur 06/27/2024 Hypothyroidism, unspecified type [...] software and direct typing Please excuse inadvertent water pumping station engineer or typing errors, or uncorrected word substitutions Although every attempt has been made by the provider to proofread this document, occasional misspellings and typographical errors may still be present Due to the previous pandemic, and the use of personal protective equipment (PPE) This may decrease voice recognition accuracy Inadvertent water pumping station engineer errors may occur 09/19/2024 LBBB (left bundle [...] software and direct typing Please excuse inadvertent water pumping station engineer or typing errors, or uncorrected word substitutions Although every attempt has been made by the provider to proofread this document, occasional misspellings and typographical errors may still be present Due to the previous pandemic, and the use of personal protective equipment (PPE) This may decrease voice recognition accuracy Inadvertent water pumping station engineer errors may occur 06/27/2024 LBBB (left bundle [...] software and direct typing Please excuse inadvertent water pumping station engineer or typing errors, or uncorrected word substitutions Although every attempt has been made by the provider to proofread this document, occasional misspellings and typographical errors may still be present Due to the previous pandemic, and the use of personal protective equipment (PPE) This may decrease voice recognition accuracy Inadvertent water pumping station engineer errors may occur 09/19/2024 Colon cancer screening [...] software and direct typing Please excuse inadvertent water pumping station engineer or typing errors, or uncorrected word substitutions Although every attempt has been made by the provider to proofread this document, occasional misspellings and typographical errors may still be present Due to the previous pandemic, and the use of personal protective equipment (PPE) This may decrease voice recognition accuracy Inadvertent water pumping station engineer errors may occur 02/28/2025 Acute Concerns/Problem List: 02/28/2025 Lets refer back [...] software and direct typing Please excuse inadvertent water pumping station engineer or typing errors, or uncorrected word substitutions Although every attempt has been made by the provider to proofread this document, occasional misspellings and typographical errors may still be present Due to the previous pandemic, and the use of personal protective equipment (PPE) This may decrease voice recognition accuracy Inadvertent water pumping station engineer errors may occur Plan Of Treatment Pending [...] 02/02/2023 Next Appt Details Provider Name:PRETTY MILES, 04/21/2025 10:45:00 AM, [address] [place] [address] [address], [place], [address], Insurance Providers Payer Name Payer Address Payer Phone Subscriber Number Group Number Insured Name Patient Relationship to Insured Coverage Start Date Coverage End Date [facility] [address] [place] [address] [id number] MARQUITA CAMEJO Self - patient is the insured 4 Medical (General) History Medical History History ICD Code hypertension hyperlipidemia diabetes mellitus Gout Arthritis prostate cancer Surgical History Surgery Date(Month/Year) prostate removal 2007
== END 2025-03-22 10:58 | disposition home or self-care (01) ==
LOC: HO.HUSH 10:28
PROVIDERS: PCP Internal Medicine; Visit Provider Urology
DX: N47.1 Phimosis (principal)
CPT/HCPCS: 99213; G2211

== ENCOUNTER → 2025-03-22 10:27 | Outpatient (BNVA) | payer MEDICARE, SELFPAY | PROVIDERS: PCP Internal Medicine; Visit Provider Urology | DX: N47.1 Phimosis (principal); C61 Malignant neoplasm of prostate; N52.31 Erectile dysfunction following radical prostatectomy | CPT/HCPCS: 99212 ==